=== PATIENT | female | born 1945 | race Two or more races ===

== ENCOUNTER 2021-07-03 18:55 | Inpatient (IN) | payer OTHER, BC ==
[2021-07-03] MEDS ORDERED: SODIUM CHLORIDE 0.9% 500 ML INFUS.BAG IV ONE (19:50)
[2021-07-03] MEDS ORDERED: IBUPROFEN 600 MG TABLET (FP) PO ONE ×2 (19:52→20:25)
[2021-07-03 20:26] LABS: BASO % 1.9 % (0-2.0); EOS % 3.6 % (0-4.5); HEMATOCRIT 36.2 % (32.4-45.2); HEMOGLOBIN 12.1 GM/dL (10.7-15.3); LYMPH % 22.2 % (8-40); MCHC 33.4 g/dl (32.0-36.0); MEAN CELL VOLUME 83.8 fl (80-96); MEAN PLT VOLUME 7.2 fl (7.5-11.1); MONO % 10.8 % (3.8-10.2); NEUT % 61.5 % (42.8-82.8); PLATELET COUNT 336 10^3/uL (134-434); RBC 4.31 M/mm3 (3.60-5.2); RDW 13.8 % (11.6-15.6); WHITE BLOOD COUNT 9.6 K/mm3 (4.0-10.0)
[2021-07-03 20:30] LABS: VENOUS BASE EXCESS 3.3 mmol/L (-2-2); VENOUS O2 SATURATION 93.7 % (70-80); VENOUS PCO2 43.2 mmHg (38-52); VENOUS PH 7.43 (7.310-7.410)
[2021-07-03 20:38] LABS: INR 0.86 (0.83-1.09); PROTHROMBIN TIME (PATIENT) 10.4 SEC (9.7-13.0)
[2021-07-03 20:41] LABS: ACTIVATED PTT 27.3 SECONDS (25.2-36.5)
[2021-07-03 20:58] LABS: BLOOD UREA NITROGEN 33.2 mg/dL (7-18); CALCIUM 8.8 mg/dL (8.5-10.1)
[2021-07-03 21:00] LABS: ALBUMIN 3.2 g/dl (3.4-5.0)
[2021-07-03 21:03] LABS: BILIRUBIN,TOTAL 0.3 mg/dL (0.2-1); TOT PROT 7.6 g/dl (6.4-8.2)
[2021-07-03 21:04] LABS: EPI CELLS 8 /uL (0-25.1); HYALINE CASTS 2 /uL (0-3.1); URINE APPEARANCE CLEAR; URINE BACTERIA 12 /uL (0-1359); URINE BILIRUBIN NEGATIVE (NEGATIVE); URINE COLOR YELLOW; URINE GLUCOSE (UA) NEGATIVE (NEGATIVE); URINE KETONE NEGATIVE (NEGATIVE); URINE LEUK ESTERASE 1+ (NEGATIVE); URINE NITRITE NEGATIVE (NEGATIVE); URINE PROTEIN NEGATIVE (NEGATIVE); URINE RBC 6 /uL (0-23.9); URINE UROBILINOGEN 0.2 mg/dL (0.2-1.0); URINE WBC 35 /uL (0-25.8)
[2021-07-03] MEDS ORDERED: CEFTRIAXONE 1 GM in DEXTROSE 5%-WATER - 100 ML IVPB ONE (22:05)
[2021-07-03] MEDS ORDERED: CEFTRIAXONE 1 GM/50 ML BAG ONE (22:10)
[2021-07-03] MEDS ORDERED: PIPERACILLIN/TAZOB 3.375 GM 3.375 GM in DEXTROSE 5%-WATER - 50 ML IVPB ONE (22:18)
[2021-07-03] MEDS ORDERED: PIPERACILLIN/TAZOB 3.375 GM 3.375 GM/50 ML BAG IVPB ONE (22:20)
[2021-07-03 22:45] LABS: CALCIUM 8.4 mg/dL (8.5-10.1)
[2021-07-03 22:46] LABS: BLOOD UREA NITROGEN 32.2 mg/dL (7-18)
[2021-07-03 22:49] LABS: CREATININE 0.9 mg/dL (0.55-1.3)
[2021-07-03 23:41] LABS: ALBUMIN 3.1 g/dl (3.4-5.0)
[2021-07-04 06:23] LABS: BASO % 0.7 % (0-2.0); EOS % 3.9 % (0-4.5); HEMATOCRIT 36.7 % (32.4-45.2); LYMPH % 25.4 % (8-40); MCH 27.9 pg (25.7-33.7); MCHC 32.8 g/dl (32.0-36.0); MEAN CELL VOLUME 85.1 fl (80-96); MEAN PLT VOLUME 7.2 fl (7.5-11.1); PLATELET COUNT 329 10^3/uL (134-434); RBC 4.31 M/mm3 (3.60-5.2); RDW 13.5 % (11.6-15.6); WHITE BLOOD COUNT 7.3 K/mm3 (4.0-10.0)
[2021-07-04 06:43] LABS: CALCIUM 8.5 mg/dL (8.5-10.1)
[2021-07-04 06:44] LABS: BLOOD UREA NITROGEN 33.4 mg/dL (7-18); MAGNESIUM 2.3 mg/dL (1.8-2.4)
[2021-07-04 06:47] LABS: CREATININE 1.2 mg/dL (0.55-1.3)
[2021-07-04 06:49] LABS: BILIRUBIN,TOTAL 0.5 mg/dL (0.2-1); TOT PROT 7.4 g/dl (6.4-8.2)
[2021-07-04] MEDS: INSULIN SLIDING SCALE (NOVOLOG) 1 VIAL SQ SCH ×4 (07:28→22:03)
[2021-07-04] MEDS ORDERED: PIPERACILLIN/TAZOB 4.5 GM 4.5 GM/100 ML BAG IVPB ONE ×2 (08:49→14:23)
[2021-07-04] MEDS ORDERED: amLODIPine BESYLATE 5 MG TABLET (FP) ONE (08:49)
[2021-07-04] MEDS ORDERED: LISINOPRIL 20 MG TABLET ONE (08:49)
[2021-07-04] MEDS ORDERED: ASPIRIN 81 MG CHEWABLE TABLETS ONE (08:49)
[2021-07-04] MEDS: PIPERACILLIN/TAZOB 4.5 GM 4.5 GM in DEXTROSE 5%-WATER 100 ML IVPB SCH ×2 (08:57→14:34)
[2021-07-04] MEDS: ASPIRIN 81 MG CHEWABLE TABLETS PO SCH (09:28)
[2021-07-04] MEDS: amLODIPine BESYLATE 5 MG TABLET (FP) PO SCH (09:28)
[2021-07-04] MEDS: LISINOPRIL 20 MG TABLET PO SCH (09:28)
[2021-07-04] MEDS: prednisoLONE ACETATE 1% OPHTH SUSP 5 ML BOTTLE OU SCH ×4 (09:28→22:11)
[2021-07-04] MEDS ORDERED: ALBUTEROL SO4 HFA INHALER IH PRN (13:26)
[2021-07-04] MEDS: ATORVASTATIN CA 80 MG TABLET (FP) PO SCH (22:04)
[2021-07-04] MEDS: EZETIMIBE 10 MG TABLET (FP) PO SCH (22:04)
[2021-07-04] MEDS: ACETAMINOPHEN 325 MG TABLET (FP) PO PRN (22:05)
[2021-07-04 22:31] VITALS: BMI 29.5
[2021-07-05] MEDS: ACETAMINOPHEN 325 MG TABLET (FP) PO PRN ×2 (05:38→20:46)
[2021-07-05] MEDS: INSULIN SLIDING SCALE (NOVOLOG) 1 VIAL SQ SCH ×4 (06:07→21:05)
[2021-07-05 08:18] LABS: HEMATOCRIT 35.4 % (32.4-45.2); HEMOGLOBIN 11.7 GM/dL (10.7-15.3); MCH 27.8 pg (25.7-33.7); MCHC 33.1 g/dl (32.0-36.0); MEAN CELL VOLUME 83.9 fl (80-96); MEAN PLT VOLUME 7.6 fl (7.5-11.1); PLATELET COUNT 341 10^3/uL (134-434); RBC 4.21 M/mm3 (3.60-5.2); RDW 13.5 % (11.6-15.6); WHITE BLOOD COUNT 7.1 K/mm3 (4.0-10.0)
[2021-07-05 08:31] LABS: ALBUMIN 3.1 g/dl (3.4-5.0); CALCIUM 8.9 mg/dL (8.5-10.1)
[2021-07-05 08:32] LABS: BLOOD UREA NITROGEN 19.9 mg/dL (7-18)
[2021-07-05 08:38] LABS: TOT PROT 8.3 g/dl (6.4-8.2)
[2021-07-05] MEDS ORDERED: DEXTROSE 5%-WATER - 50 ML IVPB ONE (09:51)
[2021-07-05] MEDS ORDERED: cefTRIAXone SODIUM 1 GM VIAL ONE (09:51)
[2021-07-05] MEDS: prednisoLONE ACETATE 1% OPHTH SUSP 5 ML BOTTLE OU SCH ×4 (09:54→21:05)
[2021-07-05] MEDS: CEFTRIAXONE 1 GM in DEXTROSE 5%-WATER - 50 ML IVPB SCH (09:54)
[2021-07-05] MEDS: ASPIRIN 81 MG CHEWABLE TABLETS PO SCH (09:54)
[2021-07-05] MEDS: amLODIPine BESYLATE 5 MG TABLET (FP) PO SCH (09:54)
[2021-07-05] MEDS: LISINOPRIL 20 MG TABLET PO SCH (09:54)
[2021-07-05] MEDS: EZETIMIBE 10 MG TABLET (FP) PO SCH (21:05)
[2021-07-05] MEDS: ATORVASTATIN CA 80 MG TABLET (FP) PO SCH (21:05)
[2021-07-06] MEDS: INSULIN SLIDING SCALE (NOVOLOG) 1 VIAL SQ SCH ×4 (06:22→22:03)
[2021-07-06] MEDS: PIPERACILLIN/TAZOB 4.5 GM 4.5 GM in DEXTROSE 5%-WATER 100 ML IVPB SCH (07:41)
[2021-07-06 07:49] LABS: BASO % 1.2 % (0-2.0); EOS % 3.4 % (0-4.5); HEMATOCRIT 37.1 % (32.4-45.2); HEMOGLOBIN 12.2 GM/dL (10.7-15.3); LYMPH % 27.8 % (8-40); MCH 28.1 pg (25.7-33.7); MEAN CELL VOLUME 85.1 fl (80-96); MEAN PLT VOLUME 7.3 fl (7.5-11.1); MONO % 9.3 % (3.8-10.2); NEUT % 58.3 % (42.8-82.8); PLATELET COUNT 373 10^3/uL (134-434); RBC 4.36 M/mm3 (3.60-5.2); RDW 13.4 % (11.6-15.6); WHITE BLOOD COUNT 7.2 K/mm3 (4.0-10.0)
[2021-07-06 08:13] LABS: ALBUMIN 3.1 g/dl (3.4-5.0); CALCIUM 9.1 mg/dL (8.5-10.1)
[2021-07-06 08:16] LABS: CREATININE 0.8 mg/dL (0.55-1.3)
[2021-07-06 08:18] LABS: TOT PROT 7.4 g/dl (6.4-8.2)
[2021-07-06 08:27] LABS: BILIRUBIN,TOTAL 0.5 mg/dL (0.2-1)
[2021-07-06] MEDS ORDERED: cefTRIAXone SODIUM 1 GM VIAL ONE (10:24)
[2021-07-06] MEDS ORDERED: DEXTROSE 5%-WATER - 50 ML IVPB ONE (10:24)
[2021-07-06] MEDS: LISINOPRIL 20 MG TABLET PO SCH (10:33)
[2021-07-06] MEDS: prednisoLONE ACETATE 1% OPHTH SUSP 5 ML BOTTLE OU SCH ×5 (10:33→22:04)
[2021-07-06] MEDS: amLODIPine BESYLATE 5 MG TABLET (FP) PO SCH (10:33)
[2021-07-06] MEDS: CEFTRIAXONE 1 GM in DEXTROSE 5%-WATER - 50 ML IVPB SCH (10:34)
[2021-07-06] MEDS: ASPIRIN 81 MG CHEWABLE TABLETS PO SCH (10:34)
[2021-07-06] MEDS ORDERED: ALBUTEROL SO4 HFA INHALER IH PRN (13:54)
[2021-07-06] MEDS: ATORVASTATIN CA 80 MG TABLET (FP) PO SCH (22:02)
[2021-07-06] MEDS: EZETIMIBE 10 MG TABLET (FP) PO SCH (22:02)
[2021-07-07] MEDS: INSULIN SLIDING SCALE (NOVOLOG) 1 VIAL SQ SCH ×4 (06:32→21:55)
[2021-07-07] MEDS: ASPIRIN 81 MG CHEWABLE TABLETS PO SCH (09:37)
[2021-07-07] MEDS: LISINOPRIL 20 MG TABLET PO SCH (09:37)
[2021-07-07] MEDS: LIDOCAINE 5% TOPICAL PATCH TP SCH (09:37)
[2021-07-07] MEDS: prednisoLONE ACETATE 1% OPHTH SUSP 5 ML BOTTLE OU SCH ×4 (09:41→21:56)
[2021-07-07] MEDS ORDERED: CEFTRIAXONE 1 GM in DEXTROSE 5%-WATER - 50 ML IVPB SCH (10:00)
[2021-07-07] MEDS ORDERED: amLODIPine BESYLATE 5 MG TABLET (FP) PO SCH ×2 (10:00→12:20)
[2021-07-07] MEDS ORDERED: amLODIPine BESYLATE 10 MG TABLET (FP) PO SCH (12:24)
[2021-07-07] MEDS: EZETIMIBE 10 MG TABLET (FP) PO SCH (21:52)
[2021-07-07] MEDS: ATORVASTATIN CA 80 MG TABLET (FP) PO SCH (21:53)
[2021-07-07] MEDS: LIDOCAINE PATCH REMOVAL MC SCH (21:55)
[2021-07-07] MEDS: ACETAMINOPHEN 325 MG TABLET (FP) PO PRN (22:01)
[2021-07-08 06:35] VITALS: BP 155/76; PULSE 92; TEMP 97.2
[2021-07-08] MEDS: INSULIN SLIDING SCALE (NOVOLOG) 1 VIAL SQ SCH ×4 (06:35→21:02)
[2021-07-08] MEDS: ASPIRIN 81 MG CHEWABLE TABLETS PO SCH (11:44)
[2021-07-08] MEDS: LISINOPRIL 20 MG TABLET PO SCH (11:44)
[2021-07-08] MEDS: LIDOCAINE 5% TOPICAL PATCH TP SCH (11:44)
[2021-07-08] MEDS: prednisoLONE ACETATE 1% OPHTH SUSP 5 ML BOTTLE OU SCH ×4 (11:45→21:04)
[2021-07-08] MEDS: ACETAMINOPHEN 325 MG TABLET (FP) PO PRN (19:58)
[2021-07-08] MEDS: ATORVASTATIN CA 80 MG TABLET (FP) PO SCH (21:03)
[2021-07-08] MEDS: EZETIMIBE 10 MG TABLET (FP) PO SCH (21:03)
[2021-07-08] MEDS: LIDOCAINE PATCH REMOVAL MC SCH (22:56)
== END 2021-07-08 23:15 | DRG 689 ==
LOC: JER 18:55 → JERBED 21:37 → J4W 07-04 21:37 → J6S 07-06 14:17
PROVIDERS: ADMIT Internal Medicine; ATTEND Family Medicine
DX: N39.0 Urinary tract infection, site not specified (principal); G93.41 Metabolic encephalopathy; I69.354 Hemiplegia and hemiparesis following cerebral infarction affecting left non-dominant side; I50.32 Chronic diastolic (congestive) heart failure; E11.40 Type 2 diabetes mellitus with diabetic neuropathy, unspecified; I25.10 Atherosclerotic heart disease of native coronary artery without angina pectoris; I11.0 Hypertensive heart disease with heart failure; R50.9 Fever, unspecified; R41.82 Altered mental status, unspecified; E78.5 Hyperlipidemia, unspecified; M54.9 Dorsalgia, unspecified; F03.90 Unspecified dementia, unspecified severity, without behavioral disturbance, psychotic disturbance, mood disturbance, and anxiety; J45.909 Unspecified asthma, uncomplicated; E86.0 Dehydration; N28.1 Cyst of kidney, acquired; W19.XXXA Unspecified fall, initial encounter
CPT/HCPCS: 36415; 70450-TC; 71045-TC-FY; 76775-TC; 76856-TC; 80048; 80053; 81003; 82040; 82550; 82570; 82803; 82962; 83605; 83735; 84156; 84300; 84443; 84484; 85025; 85027; 85610; 85730; 87040; 87086; 87899; 93005; 93010; 93880-TC; 97116-GP; 97162-GP; 99285-25; C9803; U0003; U0005

== ENCOUNTER 2022-08-11 11:55 | Inpatient (IN) | payer OTHER, BC ==
[2022-08-11 13:15] LABS: BASO % 1.4 % (0-2.0); EOS % 1.9 % (0-4.5); HEMATOCRIT 34.4 % (32.4-45.2); LYMPH % 19.3 % (8-40); MCH 26.7 pg (25.7-33.7); MEAN CELL VOLUME 83.5 fl (80-96); MEAN PLT VOLUME 7.3 fl (7.5-11.1); MONO % 11.4 % (3.8-10.2); PLATELET COUNT 385 10^3/uL (134-434); RBC 4.12 M/mm3 (3.60-5.2); RDW 13.9 % (11.6-15.6); WHITE BLOOD COUNT 8.8 K/mm3 (4.0-10.0)
[2022-08-11] MEDS ORDERED: ACETAMINOPHEN 1000 MG/100 ML BAG IVPB ONE (13:27)
[2022-08-11] MEDS ORDERED: ACETAMINOPHEN INJECTION 100 ML IVPB ONE (13:34)
[2022-08-11 14:23] LABS: URINE APPEARANCE CLEAR; URINE BILIRUBIN NEGATIVE (NEGATIVE); URINE COLOR YELLOW; URINE GLUCOSE (UA) NEGATIVE (NEGATIVE); URINE KETONE NEGATIVE (NEGATIVE); URINE LEUK ESTERASE NEGATIVE (NEGATIVE); URINE NITRITE NEGATIVE (NEGATIVE); URINE PROTEIN NEGATIVE (NEGATIVE)
[2022-08-11 14:32] LABS: ALBUMIN 3.4 g/dl (3.4-5.0); BILIRUBIN,TOTAL 0.4 mg/dL (0.2-1); BLOOD UREA NITROGEN 12.9 mg/dL (7-18); CALCIUM 9.2 mg/dL (8.5-10.1); TOT PROT 7.5 g/dl (6.4-8.2)
[2022-08-11] MEDS: INSULIN SLIDING SCALE (NOVOLOG) 1 VIAL SQ SCH ×2 (18:41→22:10)
[2022-08-11] MEDS: prednisoLONE ACETATE 1% OPHTH SUSP 5 ML BOTTLE OU SCH ×2 (18:42→23:55)
[2022-08-11] MEDS: KETOROLAC TROMETHAMINE 15 MG/ML VIAL IVPUSH PRN (18:46)
[2022-08-11 20:06] VITALS: BMI 35.6
[2022-08-11] MEDS: ROSUVASTATIN CA 10 MG TABLET PO SCH (22:10)
[2022-08-11] MEDS: FAMOTIDINE 20 MG TABLET PO SCH (22:10)
[2022-08-11] MEDS: ACETAMINOPHEN 325 MG TABLET (FP) PO PRN (22:10)
[2022-08-11] MEDS: GABAPENTIN 100 MG CAPSULE PO SCH (22:10)
[2022-08-11] MEDS: LIDOCAINE PATCH REMOVAL MC SCH (23:55)
[2022-08-12] MEDS: KETOROLAC TROMETHAMINE 15 MG/ML VIAL IVPUSH PRN ×2 (05:55→16:01)
[2022-08-12] MEDS: GABAPENTIN 100 MG CAPSULE PO SCH ×3 (05:55→21:15)
[2022-08-12] MEDS: INSULIN SLIDING SCALE (NOVOLOG) 1 VIAL SQ SCH ×4 (06:22→21:15)
[2022-08-12 09:57] LABS: BLOOD UREA NITROGEN 12.6 mg/dL (7-18)
[2022-08-12 09:58] LABS: CALCIUM 9.4 mg/dL (8.5-10.1)
[2022-08-12 09:59] LABS: PHOSPHOROUS 4.2 mg/dL (2.5-4.9)
[2022-08-12] MEDS: LISINOPRIL 20 MG TABLET PO SCH (10:09)
[2022-08-12] MEDS: amLODIPine BESYLATE 5 MG TABLET (FP) PO SCH (10:09)
[2022-08-12] MEDS: ENOXAPARIN NA (PORCINE) 40 MG/0.4 ML DISP.SYRIN SQ SCH (10:10)
[2022-08-12] MEDS: MECLIZINE HCL 12.5 MG TABLET PO SCH (10:10)
[2022-08-12] MEDS: ASPIRIN 81 MG CHEWABLE TABLETS PO SCH (10:10)
[2022-08-12] MEDS: LIDOCAINE 5% TOPICAL PATCH TP SCH (10:10)
[2022-08-12] MEDS: EZETIMIBE 10 MG TABLET (FP) PO SCH (10:10)
[2022-08-12] MEDS: FAMOTIDINE 20 MG TABLET PO SCH ×2 (10:10→21:15)
[2022-08-12] MEDS: prednisoLONE ACETATE 1% OPHTH SUSP 5 ML BOTTLE OU SCH ×4 (10:14→21:15)
[2022-08-12] MEDS: ROSUVASTATIN CA 10 MG TABLET PO SCH (21:15)
[2022-08-12] MEDS: LIDOCAINE PATCH REMOVAL MC SCH (21:20)
[2022-08-13] MEDS: GABAPENTIN 100 MG CAPSULE PO SCH ×3 (06:17→21:41)
[2022-08-13] MEDS: INSULIN SLIDING SCALE (NOVOLOG) 1 VIAL SQ SCH ×4 (06:23→22:30)
[2022-08-13] MEDS ORDERED: ALBUTEROL SO4 HFA INHALER IH PRN (08:24)
[2022-08-13] MEDS: LIDOCAINE 5% TOPICAL PATCH TP SCH (10:26)
[2022-08-13] MEDS: amLODIPine BESYLATE 5 MG TABLET (FP) PO SCH (10:26)
[2022-08-13] MEDS: FAMOTIDINE 20 MG TABLET PO SCH ×2 (10:26→21:40)
[2022-08-13] MEDS: MECLIZINE HCL 12.5 MG TABLET PO SCH (10:26)
[2022-08-13] MEDS: ASPIRIN 81 MG CHEWABLE TABLETS PO SCH (10:26)
[2022-08-13] MEDS: EZETIMIBE 10 MG TABLET (FP) PO SCH (10:26)
[2022-08-13] MEDS: LISINOPRIL 20 MG TABLET PO SCH (10:26)
[2022-08-13] MEDS: ENOXAPARIN NA (PORCINE) 40 MG/0.4 ML DISP.SYRIN SQ SCH (10:27)
[2022-08-13] MEDS: prednisoLONE ACETATE 1% OPHTH SUSP 5 ML BOTTLE OU SCH ×4 (10:27→21:41)
[2022-08-13] MEDS: LIDOCAINE PATCH REMOVAL MC SCH (21:41)
[2022-08-13] MEDS: ROSUVASTATIN CA 10 MG TABLET PO SCH (21:41)
[2022-08-13] MEDS: KETOROLAC TROMETHAMINE 15 MG/ML VIAL IVPUSH PRN (21:43)
[2022-08-14] MEDS: GABAPENTIN 100 MG CAPSULE PO SCH ×3 (06:01→21:09)
[2022-08-14] MEDS: INSULIN SLIDING SCALE (NOVOLOG) 1 VIAL SQ SCH ×4 (06:02→21:13)
[2022-08-14] MEDS: ACETAMINOPHEN 325 MG TABLET (FP) PO PRN ×2 (06:02→21:00)
[2022-08-14] MEDS: LIDOCAINE 5% TOPICAL PATCH TP SCH (09:43)
[2022-08-14] MEDS: MECLIZINE HCL 12.5 MG TABLET PO SCH (09:43)
[2022-08-14] MEDS: amLODIPine BESYLATE 5 MG TABLET (FP) PO SCH (09:43)
[2022-08-14] MEDS: ENOXAPARIN NA (PORCINE) 40 MG/0.4 ML DISP.SYRIN SQ SCH (09:43)
[2022-08-14] MEDS: EZETIMIBE 10 MG TABLET (FP) PO SCH (09:45)
[2022-08-14] MEDS: LISINOPRIL 20 MG TABLET PO SCH (09:45)
[2022-08-14] MEDS: FAMOTIDINE 20 MG TABLET PO SCH ×2 (09:45→21:09)
[2022-08-14] MEDS: prednisoLONE ACETATE 1% OPHTH SUSP 5 ML BOTTLE OU SCH ×4 (09:46→21:14)
[2022-08-14] MEDS: ASPIRIN 81 MG CHEWABLE TABLETS PO SCH (09:46)
[2022-08-14 10:06] LABS: HEMATOCRIT 34.8 % (32.4-45.2); HEMOGLOBIN 11.2 GM/dL (10.7-15.3); MCHC 32.3 g/dl (32.0-36.0); MEAN CELL VOLUME 83.5 fl (80-96); MEAN PLT VOLUME 6.8 fl (7.5-11.1); PLATELET COUNT 381 10^3/uL (134-434); RBC 4.17 M/mm3 (3.60-5.2); RDW 13.7 % (11.6-15.6); WHITE BLOOD COUNT 7.9 K/mm3 (4.0-10.0)
[2022-08-14 10:34] LABS: CALCIUM 8.9 mg/dL (8.5-10.1)
[2022-08-14 10:35] LABS: BLOOD UREA NITROGEN 17.8 mg/dL (7-18)
[2022-08-14 10:39] LABS: BILIRUBIN,TOTAL 0.5 mg/dL (0.2-1)
[2022-08-14] MEDS ORDERED: INSULIN (NOVOLOG) ASPART 100 UNITS/ML 10ML VIAL ONE (11:03)
[2022-08-14] MEDS: ROSUVASTATIN CA 10 MG TABLET PO SCH (21:09)
[2022-08-14] MEDS: traMADol HCL 50 MG TABLET PO PRN (21:09)
[2022-08-14] MEDS: LIDOCAINE PATCH REMOVAL MC SCH (21:13)
[2022-08-15] MEDS: GABAPENTIN 100 MG CAPSULE PO SCH ×3 (05:56→21:07)
[2022-08-15] MEDS: INSULIN SLIDING SCALE (NOVOLOG) 1 VIAL SQ SCH ×4 (06:49→21:08)
[2022-08-15] MEDS: EZETIMIBE 10 MG TABLET (FP) PO SCH (10:23)
[2022-08-15] MEDS: LIDOCAINE 5% TOPICAL PATCH TP SCH (10:24)
[2022-08-15] MEDS: ASPIRIN 81 MG CHEWABLE TABLETS PO SCH (10:24)
[2022-08-15] MEDS: LISINOPRIL 20 MG TABLET PO SCH (10:24)
[2022-08-15] MEDS: amLODIPine BESYLATE 5 MG TABLET (FP) PO SCH (10:24)
[2022-08-15] MEDS: prednisoLONE ACETATE 1% OPHTH SUSP 5 ML BOTTLE OU SCH ×4 (10:24→21:08)
[2022-08-15] MEDS: ENOXAPARIN NA (PORCINE) 40 MG/0.4 ML DISP.SYRIN SQ SCH (10:24)
[2022-08-15] MEDS: MECLIZINE HCL 12.5 MG TABLET PO SCH (10:24)
[2022-08-15] MEDS: FAMOTIDINE 20 MG TABLET PO SCH ×2 (10:24→21:07)
[2022-08-15] MEDS ORDERED: INSULIN (NOVOLOG) ASPART 100 UNITS/ML 10ML VIAL ONE (10:39)
[2022-08-15] MEDS: traMADol HCL 50 MG TABLET PO PRN (10:46)
[2022-08-15] MEDS: ROSUVASTATIN CA 10 MG TABLET PO SCH (21:07)
[2022-08-15] MEDS: ACETAMINOPHEN 325 MG TABLET (FP) PO PRN (21:07)
[2022-08-15] MEDS: LIDOCAINE PATCH REMOVAL MC SCH (21:44)
[2022-08-16] MEDS: GABAPENTIN 100 MG CAPSULE PO SCH ×3 (06:04→21:31)
[2022-08-16] MEDS: INSULIN SLIDING SCALE (NOVOLOG) 1 VIAL SQ SCH ×4 (06:04→21:32)
[2022-08-16] MEDS: FAMOTIDINE 20 MG TABLET PO SCH ×2 (09:26→21:32)
[2022-08-16] MEDS: traMADol HCL 50 MG TABLET PO PRN ×2 (09:26→21:31)
[2022-08-16] MEDS: EZETIMIBE 10 MG TABLET (FP) PO SCH (09:26)
[2022-08-16] MEDS: ENOXAPARIN NA (PORCINE) 40 MG/0.4 ML DISP.SYRIN SQ SCH (09:26)
[2022-08-16] MEDS: LISINOPRIL 20 MG TABLET PO SCH (09:26)
[2022-08-16] MEDS: MECLIZINE HCL 12.5 MG TABLET PO SCH (09:27)
[2022-08-16] MEDS: LIDOCAINE 5% TOPICAL PATCH TP SCH (09:27)
[2022-08-16] MEDS: ASPIRIN 81 MG CHEWABLE TABLETS PO SCH (09:27)
[2022-08-16] MEDS: prednisoLONE ACETATE 1% OPHTH SUSP 5 ML BOTTLE OU SCH ×4 (09:27→21:34)
[2022-08-16] MEDS: amLODIPine BESYLATE 5 MG TABLET (FP) PO SCH (09:32)
[2022-08-16] MEDS: KETOROLAC TROMETHAMINE 15 MG/ML VIAL IVPUSH PRN (13:19)
[2022-08-16] MEDS: ROSUVASTATIN CA 10 MG TABLET PO SCH (21:32)
[2022-08-16] MEDS: LIDOCAINE PATCH REMOVAL MC SCH (21:32)
[2022-08-17] MEDS: GABAPENTIN 100 MG CAPSULE PO SCH ×3 (06:36→21:23)
[2022-08-17] MEDS: INSULIN SLIDING SCALE (NOVOLOG) 1 VIAL SQ SCH ×4 (06:36→21:24)
[2022-08-17] MEDS: EZETIMIBE 10 MG TABLET (FP) PO SCH (09:40)
[2022-08-17] MEDS: FAMOTIDINE 20 MG TABLET PO SCH ×2 (09:40→21:22)
[2022-08-17] MEDS: ASPIRIN 81 MG CHEWABLE TABLETS PO SCH (09:40)
[2022-08-17] MEDS: amLODIPine BESYLATE 5 MG TABLET (FP) PO SCH (09:40)
[2022-08-17] MEDS: MECLIZINE HCL 12.5 MG TABLET PO SCH (09:41)
[2022-08-17] MEDS: LIDOCAINE 5% TOPICAL PATCH TP SCH (09:41)
[2022-08-17 10:11] LABS: HEMATOCRIT 33.4 % (32.4-45.2); HEMOGLOBIN 10.6 GM/dL (10.7-15.3); MCH 26.5 pg (25.7-33.7); MCHC 31.7 g/dl (32.0-36.0); MEAN CELL VOLUME 83.5 fl (80-96); MEAN PLT VOLUME 6.8 fl (7.5-11.1); PLATELET COUNT 418 10^3/uL (134-434); WHITE BLOOD COUNT 8.7 K/mm3 (4.0-10.0)
[2022-08-17 10:41] LABS: CALCIUM 8.6 mg/dL (8.5-10.1)
[2022-08-17 10:42] LABS: ALBUMIN 2.9 g/dl (3.4-5.0)
[2022-08-17 10:44] LABS: BILIRUBIN,TOTAL 0.4 mg/dL (0.2-1); CREATININE 1.5 mg/dL (0.55-1.3); TOT PROT 7.1 g/dl (6.4-8.2)
[2022-08-17] MEDS: prednisoLONE ACETATE 1% OPHTH SUSP 5 ML BOTTLE OU SCH ×4 (10:47→21:23)
[2022-08-17] MEDS: LISINOPRIL 20 MG TABLET PO SCH (10:48)
[2022-08-17 10:49] LABS: BLOOD UREA NITROGEN 48.2 mg/dL (7-18)
[2022-08-17] MEDS: ENOXAPARIN NA (PORCINE) 40 MG/0.4 ML DISP.SYRIN SQ SCH (10:54)
[2022-08-17] MEDS: KETOROLAC TROMETHAMINE 15 MG/ML VIAL IVPUSH PRN (11:59)
[2022-08-17] MEDS: ACETAMINOPHEN 325 MG TABLET (FP) PO PRN (18:36)
[2022-08-17] MEDS: ROSUVASTATIN CA 10 MG TABLET PO SCH (21:23)
[2022-08-17] MEDS: LIDOCAINE PATCH REMOVAL MC SCH (21:36)
[2022-08-18] MEDS: GABAPENTIN 100 MG CAPSULE PO SCH ×2 (05:28→13:52)
[2022-08-18] MEDS: INSULIN SLIDING SCALE (NOVOLOG) 1 VIAL SQ SCH ×4 (06:07→22:12)
[2022-08-18] MEDS: LIDOCAINE 5% TOPICAL PATCH TP SCH (09:49)
[2022-08-18] MEDS: MECLIZINE HCL 12.5 MG TABLET PO SCH (09:50)
[2022-08-18] MEDS: EZETIMIBE 10 MG TABLET (FP) PO SCH (09:50)
[2022-08-18] MEDS: ASPIRIN 81 MG CHEWABLE TABLETS PO SCH (09:50)
[2022-08-18] MEDS: FAMOTIDINE 20 MG TABLET PO SCH ×2 (09:50→22:11)
[2022-08-18] MEDS: ENOXAPARIN NA (PORCINE) 40 MG/0.4 ML DISP.SYRIN SQ SCH (09:50)
[2022-08-18] MEDS: prednisoLONE ACETATE 1% OPHTH SUSP 5 ML BOTTLE OU SCH ×4 (09:50→22:18)
[2022-08-18] MEDS: amLODIPine BESYLATE 5 MG TABLET (FP) PO SCH (09:50)
[2022-08-18 11:39] LABS: HEMATOCRIT 32.2 % (32.4-45.2); HEMOGLOBIN 10.6 GM/dL (10.7-15.3); MCH 27.6 pg (25.7-33.7); MCHC 33.1 g/dl (32.0-36.0); MEAN CELL VOLUME 83.2 fl (80-96); MEAN PLT VOLUME 6.7 fl (7.5-11.1); PLATELET COUNT 439 10^3/uL (134-434); RBC 3.86 M/mm3 (3.60-5.2); RDW 13.4 % (11.6-15.6); WHITE BLOOD COUNT 7.6 K/mm3 (4.0-10.0)
[2022-08-18 12:24] LABS: ALBUMIN 2.8 g/dl (3.4-5.0); BLOOD UREA NITROGEN 38.4 mg/dL (7-18)
[2022-08-18 12:26] LABS: CREATININE 1.2 mg/dL (0.55-1.3)
[2022-08-18 12:28] LABS: BILIRUBIN,TOTAL 0.7 mg/dL (0.2-1); TOT PROT 7.2 g/dl (6.4-8.2)
[2022-08-18] MEDS: ACETAMINOPHEN 325 MG TABLET (FP) PO PRN (22:11)
[2022-08-18] MEDS: ROSUVASTATIN CA 10 MG TABLET PO SCH (22:11)
[2022-08-18] MEDS: GABAPENTIN 300 MG CAPSULE PO SCH (22:11)
[2022-08-18] MEDS: LIDOCAINE PATCH REMOVAL MC SCH (22:12)
[2022-08-19] MEDS: GABAPENTIN 300 MG CAPSULE PO SCH ×3 (06:28→22:45)
[2022-08-19] MEDS: INSULIN SLIDING SCALE (NOVOLOG) 1 VIAL SQ SCH ×4 (06:31→22:45)
[2022-08-19] MEDS: ACETAMINOPHEN 325 MG TABLET (FP) PO PRN ×2 (10:20→22:47)
[2022-08-19] MEDS: amLODIPine BESYLATE 5 MG TABLET (FP) PO SCH (10:20)
[2022-08-19] MEDS: EZETIMIBE 10 MG TABLET (FP) PO SCH (10:21)
[2022-08-19] MEDS: LIDOCAINE 5% TOPICAL PATCH TP SCH (10:21)
[2022-08-19] MEDS: ASPIRIN 81 MG CHEWABLE TABLETS PO SCH (10:21)
[2022-08-19] MEDS: MECLIZINE HCL 12.5 MG TABLET PO SCH (10:21)
[2022-08-19] MEDS: prednisoLONE ACETATE 1% OPHTH SUSP 5 ML BOTTLE OU SCH ×4 (10:21→22:46)
[2022-08-19] MEDS: FAMOTIDINE 20 MG TABLET PO SCH ×2 (10:22→22:45)
[2022-08-19 10:46] LABS: HEMATOCRIT 33.3 % (32.4-45.2); HEMOGLOBIN 10.8 GM/dL (10.7-15.3); MCHC 32.6 g/dl (32.0-36.0); MEAN CELL VOLUME 82.6 fl (80-96); MEAN PLT VOLUME 6.4 fl (7.5-11.1); PLATELET COUNT 462 10^3/uL (134-434); RBC 4.02 M/mm3 (3.60-5.2); RDW 13.5 % (11.6-15.6); WHITE BLOOD COUNT 8.1 K/mm3 (4.0-10.0)
[2022-08-19 11:12] LABS: ALBUMIN 2.7 g/dl (3.4-5.0); BLOOD UREA NITROGEN 29.2 mg/dL (7-18); CALCIUM 8.8 mg/dL (8.5-10.1)
[2022-08-19 11:18] LABS: BILIRUBIN,TOTAL 0.5 mg/dL (0.2-1); TOT PROT 7.2 g/dl (6.4-8.2)
[2022-08-19] MEDS: LIDOCAINE PATCH REMOVAL MC SCH (22:45)
[2022-08-19] MEDS: ROSUVASTATIN CA 10 MG TABLET PO SCH (22:45)
[2022-08-20] MEDS: GABAPENTIN 300 MG CAPSULE PO SCH ×3 (05:58→21:32)
[2022-08-20] MEDS: INSULIN SLIDING SCALE (NOVOLOG) 1 VIAL SQ SCH ×4 (06:52→21:31)
[2022-08-20] MEDS: LISINOPRIL 20 MG TABLET PO SCH (09:45)
[2022-08-20] MEDS: ASPIRIN 81 MG CHEWABLE TABLETS PO SCH (09:45)
[2022-08-20] MEDS: EZETIMIBE 10 MG TABLET (FP) PO SCH (09:45)
[2022-08-20] MEDS: FAMOTIDINE 20 MG TABLET PO SCH ×2 (09:45→21:32)
[2022-08-20] MEDS: amLODIPine BESYLATE 5 MG TABLET (FP) PO SCH (09:45)
[2022-08-20] MEDS: MECLIZINE HCL 12.5 MG TABLET PO SCH (09:45)
[2022-08-20] MEDS: LIDOCAINE 5% TOPICAL PATCH TP SCH (09:46)
[2022-08-20] MEDS: prednisoLONE ACETATE 1% OPHTH SUSP 5 ML BOTTLE OU SCH ×4 (10:10→21:33)
[2022-08-20] MEDS: ACETAMINOPHEN 325 MG TABLET (FP) PO PRN (18:36)
[2022-08-20] MEDS: LIDOCAINE PATCH REMOVAL MC SCH (21:32)
[2022-08-20] MEDS: ROSUVASTATIN CA 10 MG TABLET PO SCH (21:32)
[2022-08-21] MEDS: GABAPENTIN 300 MG CAPSULE PO SCH ×2 (06:02→13:36)
[2022-08-21] MEDS: INSULIN SLIDING SCALE (NOVOLOG) 1 VIAL SQ SCH ×4 (06:05→21:33)
[2022-08-21] MEDS: LIDOCAINE 5% TOPICAL PATCH TP SCH (09:41)
[2022-08-21] MEDS: amLODIPine BESYLATE 5 MG TABLET (FP) PO SCH (09:41)
[2022-08-21] MEDS: EZETIMIBE 10 MG TABLET (FP) PO SCH (09:42)
[2022-08-21] MEDS: LISINOPRIL 20 MG TABLET PO SCH (09:42)
[2022-08-21] MEDS: MECLIZINE HCL 12.5 MG TABLET PO SCH (09:42)
[2022-08-21] MEDS: ASPIRIN 81 MG CHEWABLE TABLETS PO SCH (09:42)
[2022-08-21] MEDS: FAMOTIDINE 20 MG TABLET PO SCH ×2 (09:42→21:31)
[2022-08-21] MEDS: prednisoLONE ACETATE 1% OPHTH SUSP 5 ML BOTTLE OU SCH ×4 (09:42→21:33)
[2022-08-21] MEDS ORDERED: DOCUSATE SODIUM 100 MG CAPSULE (FP) PO ONE (15:27)
[2022-08-21] MEDS: LORATADINE 10 MG TABLET PO SCH (16:38)
[2022-08-21 17:16] LABS: BASO % 1.1 % (0-2.0); HEMATOCRIT 34.5 % (32.4-45.2); LYMPH % 15.4 % (8-40); MCH 26.3 pg (25.7-33.7); MCHC 31.8 g/dl (32.0-36.0); MEAN CELL VOLUME 82.6 fl (80-96); MEAN PLT VOLUME 6.6 fl (7.5-11.1); MONO % 9.1 % (3.8-10.2); NEUT % 72.4 % (42.8-82.8); PLATELET COUNT 524 10^3/uL (134-434); RBC 4.18 M/mm3 (3.60-5.2); RDW 13.6 % (11.6-15.6); WHITE BLOOD COUNT 10.2 K/mm3 (4.0-10.0)
[2022-08-21 17:38] LABS: CALCIUM 9.1 mg/dL (8.5-10.1)
[2022-08-21 17:39] LABS: ALBUMIN 2.9 g/dl (3.4-5.0)
[2022-08-21 17:44] LABS: BILIRUBIN,TOTAL 0.4 mg/dL (0.2-1); TOT PROT 7.8 g/dl (6.4-8.2)
[2022-08-21] MEDS: POLYETHYLENE GLYCOL (HEALTHYLAX) 3350 17 GM PACKET PO SCH (21:31)
[2022-08-21] MEDS: ROSUVASTATIN CA 10 MG TABLET PO SCH (21:31)
[2022-08-21] MEDS: GABAPENTIN 400 MG CAPSULE PO SCH (21:31)
[2022-08-21] MEDS: LIDOCAINE PATCH REMOVAL MC SCH (21:34)
[2022-08-22] MEDS: GABAPENTIN 400 MG CAPSULE PO SCH ×2 (06:13→14:35)
[2022-08-22] MEDS: INSULIN SLIDING SCALE (NOVOLOG) 1 VIAL SQ SCH ×3 (06:15→16:34)
[2022-08-22] MEDS: POLYETHYLENE GLYCOL (HEALTHYLAX) 3350 17 GM PACKET PO SCH (09:35)
[2022-08-22] MEDS: FAMOTIDINE 20 MG TABLET PO SCH (09:35)
[2022-08-22] MEDS: LORATADINE 10 MG TABLET PO SCH (09:36)
[2022-08-22] MEDS: MECLIZINE HCL 12.5 MG TABLET PO SCH (09:36)
[2022-08-22] MEDS: ASPIRIN 81 MG CHEWABLE TABLETS PO SCH (09:36)
[2022-08-22] MEDS: prednisoLONE ACETATE 1% OPHTH SUSP 5 ML BOTTLE OU SCH ×3 (09:36→17:14)
[2022-08-22] MEDS: LIDOCAINE 5% TOPICAL PATCH TP SCH (09:36)
[2022-08-22] MEDS: EZETIMIBE 10 MG TABLET (FP) PO SCH (09:36)
[2022-08-22] MEDS: amLODIPine BESYLATE 5 MG TABLET (FP) PO SCH (09:36)
[2022-08-22] MEDS ORDERED: INSULIN (NOVOLOG) ASPART 100 UNITS/ML 10ML VIAL ONE (10:59)
[2022-08-22 12:02] LABS: HEMATOCRIT 33.7 % (32.4-45.2); HEMOGLOBIN 10.7 GM/dL (10.7-15.3); MCH 26.2 pg (25.7-33.7); MCHC 31.7 g/dl (32.0-36.0); MEAN CELL VOLUME 82.6 fl (80-96); MEAN PLT VOLUME 6.9 fl (7.5-11.1); PLATELET COUNT 532 10^3/uL (134-434); RBC 4.08 M/mm3 (3.60-5.2); RDW 13.4 % (11.6-15.6); WHITE BLOOD COUNT 10.1 K/mm3 (4.0-10.0)
[2022-08-22 12:21] LABS: CALCIUM 9.2 mg/dL (8.5-10.1)
[2022-08-22 12:22] LABS: ALBUMIN 2.7 g/dl (3.4-5.0); BLOOD UREA NITROGEN 29.5 mg/dL (7-18)
[2022-08-22 12:25] LABS: CREATININE 1.1 mg/dL (0.55-1.3)
[2022-08-22 12:26] LABS: BILIRUBIN,TOTAL 0.5 mg/dL (0.2-1); TOT PROT 7.3 g/dl (6.4-8.2)
[2022-08-22 13:42] VITALS: BP 117/71; PULSE 107; RESP 18; TEMP 99.3
== END 2022-08-22 18:12 | DRG 552 ==
LOC: JER 11:55 → JERBED 12:34 → J6S 18:09 → OBSVTOIN 08-16 13:55 → JERBED 08-19 21:04 → J6S 08-19 21:06
PROVIDERS: ADMIT Internal Medicine; ATTEND Internal Medicine
DX: M51.26 Other intervertebral disc displacement, lumbar region (principal); I50.32 Chronic diastolic (congestive) heart failure; M51.36 Other intervertebral disc degeneration, lumbar region; R26.89 Other abnormalities of gait and mobility; E11.40 Type 2 diabetes mellitus with diabetic neuropathy, unspecified; M79.671 Pain in right foot; E78.5 Hyperlipidemia, unspecified; J45.909 Unspecified asthma, uncomplicated; I11.0 Hypertensive heart disease with heart failure; D72.829 Elevated white blood cell count, unspecified; R32 Unspecified urinary incontinence; R42 Dizziness and giddiness
CPT/HCPCS: 36415; 70450-TC; 71045-TC-FY; 72148-TC; 73521-TC-FY; 73700-TC-RT; 80048; 80053; 81003; 82746; 82962; 83735; 84100; 84252; 85025; 85027; 87086; 93005; 93010; 97116-GP; 97162-GP; 99285-25; C9803-CS; G0378; U0003; U0005

== ENCOUNTER 2022-09-28 19:24 | Observation (INO) | payer OTHER, BC ==
[2022-09-28] MEDS ORDERED: ENOXAPARIN NA (PORCINE) 100 MG/1 ML DISP.SYRIN SQ ONE ×2 (21:03→22:21)
[2022-09-28 22:11] LABS: BASO % 1.9 % (0-2.0); EOS % 2.9 % (0-4.5); HEMATOCRIT 26.7 % (32.4-45.2); HEMOGLOBIN 8.6 GM/dL (10.7-15.3); LYMPH % 29.7 % (8-40); MCH 26.6 pg (25.7-33.7); MCHC 32.2 g/dl (32.0-36.0); MEAN CELL VOLUME 82.5 fl (80-96); MEAN PLT VOLUME 6.7 fl (7.5-11.1); MONO % 9.8 % (3.8-10.2); NEUT % 55.7 % (42.8-82.8); PLATELET COUNT 367 10^3/uL (134-434); RBC 3.23 M/mm3 (3.60-5.2); RDW 15.3 % (11.6-15.6); WHITE BLOOD COUNT 8.2 K/mm3 (4.0-10.0)
[2022-09-28 22:27] LABS: BLOOD UREA NITROGEN 17.7 mg/dL (7-18); CALCIUM 8.3 mg/dL (8.5-10.1)
[2022-09-28 22:30] LABS: CREATININE 1.2 mg/dL (0.55-1.3)
[2022-09-28 22:31] LABS: BILIRUBIN,TOTAL 0.2 mg/dL (0.2-1); TOT PROT 6.8 g/dl (6.4-8.2)
[2022-09-28 22:35] LABS: N-TERMINAL BNP 271.5 pg/ml (5-450)
[2022-09-29 03:07] LABS: RETICULOCYTES 1.45 % (0.5-1.5)
[2022-09-29 04:27] VITALS: BMI 31.7
[2022-09-29] MEDS: INSULIN SLIDING SCALE (NOVOLOG) 1 VIAL SQ SCH ×4 (07:12→23:03)
[2022-09-29] MEDS: ENOXAPARIN NA (PORCINE) 80 MG/0.8 ML DISP.SYRIN SQ SCH ×2 (09:52→22:51)
[2022-09-29] MEDS: amLODIPine BESYLATE 5 MG TABLET (FP) PO SCH (09:53)
[2022-09-29] MEDS: ASPIRIN 81 MG CHEWABLE TABLETS PO SCH (09:53)
[2022-09-29] MEDS: CITALOPRAM HYDROBROMIDE 20 MG TABLET PO SCH (09:53)
[2022-09-29] MEDS: FAMOTIDINE 20 MG TABLET PO SCH ×2 (09:53→22:50)
[2022-09-29] MEDS: EZETIMIBE 10 MG TABLET (FP) PO SCH (09:54)
[2022-09-29] MEDS: prednisoLONE ACETATE 1% OPHTH SUSP 5 ML BOTTLE OU SCH ×2 (11:19→22:51)
[2022-09-29 12:46] LABS: EPI CELLS 7 /uL (0-25.1); HYALINE CASTS 0 /uL (0-3.1); URINE APPEARANCE CLEAR; URINE BACTERIA >9,000 /uL (0-1359); URINE BILIRUBIN NEGATIVE (NEGATIVE); URINE COLOR YELLOW; URINE GLUCOSE (UA) NEGATIVE (NEGATIVE); URINE KETONE NEGATIVE (NEGATIVE); URINE LEUK ESTERASE 1+ (NEGATIVE); URINE NITRITE NEGATIVE (NEGATIVE); URINE PROTEIN NEGATIVE (NEGATIVE); URINE RBC 8 /uL (0-23.9); URINE UROBILINOGEN 0.2 mg/dL (0.2-1.0); URINE WBC 52 /uL (0-25.8)
[2022-09-29] MEDS: GABAPENTIN 400 MG CAPSULE PO SCH ×2 (14:18→22:50)
[2022-09-29] MEDS: MECLIZINE HCL 12.5 MG TABLET PO SCH ×2 (14:19→22:50)
[2022-09-29] MEDS ORDERED: DOCUSATE SODIUM 100 MG CAPSULE (FP) PO SCH (22:00)
[2022-09-29] MEDS ORDERED: ATORVASTATIN CA 20 MG TABLET (FP) PO SCH (22:00)
[2022-09-30] MEDS: MECLIZINE HCL 12.5 MG TABLET PO SCH ×2 (06:09→13:14)
[2022-09-30] MEDS: GABAPENTIN 400 MG CAPSULE PO SCH ×2 (06:09→13:14)
[2022-09-30] MEDS: INSULIN SLIDING SCALE (NOVOLOG) 1 VIAL SQ SCH ×3 (06:33→15:56)
[2022-09-30] MEDS: prednisoLONE ACETATE 1% OPHTH SUSP 5 ML BOTTLE OU SCH ×2 (09:18→09:23)
[2022-09-30] MEDS: EZETIMIBE 10 MG TABLET (FP) PO SCH (09:18)
[2022-09-30] MEDS: ASPIRIN 81 MG CHEWABLE TABLETS PO SCH (09:18)
[2022-09-30] MEDS: ENOXAPARIN NA (PORCINE) 80 MG/0.8 ML DISP.SYRIN SQ SCH (09:18)
[2022-09-30] MEDS: CITALOPRAM HYDROBROMIDE 20 MG TABLET PO SCH (09:18)
[2022-09-30] MEDS: amLODIPine BESYLATE 5 MG TABLET (FP) PO SCH (09:18)
[2022-09-30] MEDS: FAMOTIDINE 20 MG TABLET PO SCH (09:18)
[2022-09-30 09:56] LABS: BASO % 1.3 % (0-2.0); EOS % 2.8 % (0-4.5); HEMATOCRIT 31.1 % (32.4-45.2); HEMOGLOBIN 9.8 GM/dL (10.7-15.3); LYMPH % 32.4 % (8-40); MCH 25.9 pg (25.7-33.7); MCHC 31.6 g/dl (32.0-36.0); MEAN PLT VOLUME 7.5 fl (7.5-11.1); MONO % 8.1 % (3.8-10.2); NEUT % 55.4 % (42.8-82.8); PLATELET COUNT 409 10^3/uL (134-434); RBC 3.79 M/mm3 (3.60-5.2); RDW 15.6 % (11.6-15.6); WHITE BLOOD COUNT 6.8 K/mm3 (4.0-10.0)
[2022-09-30 10:06] LABS: ALBUMIN 3.2 g/dl (3.4-5.0); CALCIUM 9.5 mg/dL (8.5-10.1)
[2022-09-30 10:07] LABS: MAGNESIUM 1.7 mg/dL (1.8-2.4)
[2022-09-30 10:10] LABS: CREATININE 0.9 mg/dL (0.55-1.3)
[2022-09-30 10:11] LABS: BILIRUBIN,TOTAL 1.2 mg/dL (0.2-1); TOT PROT 7.2 g/dl (6.4-8.2)
[2022-09-30 10:21] VITALS: BP 146/81; PULSE 103; RESP 18; TEMP 99.1
== END 2022-09-30 17:30 | disposition home or self-care (01) ==
LOC: JER 19:24 → INTOOBSV 23:14 → JERBED 23:14 → J7W 09-29 03:15
PROVIDERS: ADMIT Internal Medicine; ATTEND Internal Medicine
PROC: 3E023GC Introduction of Other Therapeutic Substance into Muscle, Percutaneous Approach (ICD-10-PCS; principal; 2022-09-28)
PROC: 3E013VG Introduction of Insulin into Subcutaneous Tissue, Percutaneous Approach (ICD-10-PCS; 2022-09-28)
DX: I82.4Z1 Acute embolism and thrombosis of unspecified deep veins of right distal lower extremity (principal); I11.0 Hypertensive heart disease with heart failure; E11.40 Type 2 diabetes mellitus with diabetic neuropathy, unspecified; Z79.01 Long term (current) use of anticoagulants; E66.8 Other obesity; Z68.34 Body mass index [BMI] 34.0-34.9, adult; R29.810 Facial weakness; H54.40 Blindness, one eye, unspecified eye; J45.909 Unspecified asthma, uncomplicated; F03.90 Unspecified dementia, unspecified severity, without behavioral disturbance, psychotic disturbance, mood disturbance, and anxiety; I69.398 Other sequelae of cerebral infarction; G89.29 Other chronic pain; M54.50 Low back pain, unspecified; E78.5 Hyperlipidemia, unspecified; M79.604 Pain in right leg; Z88.8 Allergy status to other drugs, medicaments and biological substances; R60.9 Edema, unspecified; D64.9 Anemia, unspecified; M19.90 Unspecified osteoarthritis, unspecified site
CPT/HCPCS: 36415; 80053; 81003; 82607; 82728; 82746; 82962; 83540; 83550; 83615; 83735; 83880; 84100; 85025; 85045; 93005; 93010; 96372; 97116-GP; 99285-25; C9803-CS; G0378; U0003; U0005

== ENCOUNTER 2022-09-30 18:38 | Observation (INO) | payer OTHER, BC ==
[2022-09-30 19:02] VITALS: BMI 32.1
[2022-09-30] MEDS ORDERED: CEFTRIAXONE 1 GM in DEXTROSE 5%-WATER - 50 ML IVPB ONE (19:44)
[2022-09-30] MEDS ORDERED: CEFTRIAXONE 1 GM/50 ML BAG ONE (21:58)
[2022-09-30 22:53] LABS: BASO % 1.2 % (0-2.0); EOS % 0.8 % (0-4.5); HEMATOCRIT 31.2 % (32.4-45.2); HEMOGLOBIN 9.8 GM/dL (10.7-15.3); MCH 25.9 pg (25.7-33.7); MCHC 31.6 g/dl (32.0-36.0); MEAN CELL VOLUME 82.1 fl (80-96); MEAN PLT VOLUME 7.4 fl (7.5-11.1); MONO % 7.6 % (3.8-10.2); NEUT % 73.4 % (42.8-82.8); PLATELET COUNT 423 10^3/uL (134-434); RDW 15.2 % (11.6-15.6); WHITE BLOOD COUNT 10.5 K/mm3 (4.0-10.0)
[2022-09-30 23:13] LABS: ALBUMIN 3.5 g/dl (3.4-5.0); CALCIUM 9.3 mg/dL (8.5-10.1)
[2022-09-30 23:14] LABS: BLOOD UREA NITROGEN 14.8 mg/dL (7-18)
[2022-09-30 23:18] LABS: BILIRUBIN,TOTAL 0.3 mg/dL (0.2-1); TOT PROT 7.6 g/dl (6.4-8.2)
[2022-10-01] MEDS ORDERED: ENOXAPARIN NA (PORCINE) 40 MG/0.4 ML DISP.SYRIN SQ SCH (10:00)
[2022-10-01] MEDS ORDERED: MECLIZINE HCL 12.5 MG TABLET PO PRN (10:18)
[2022-10-01] MEDS ORDERED: ASPIRIN 325 MG TABLET PO ONE (11:00)
[2022-10-01] MEDS: amLODIPine BESYLATE 10 MG TABLET (FP) PO SCH (12:03)
[2022-10-01] MEDS: LISINOPRIL 20 MG TABLET PO SCH (12:03)
[2022-10-01] MEDS: CITALOPRAM HYDROBROMIDE 20 MG TABLET PO SCH (12:03)
[2022-10-01 12:13] LABS: BASO % 1.2 % (0-2.0); EOS % 2.5 % (0-4.5); HEMOGLOBIN 9.6 GM/dL (10.7-15.3); LYMPH % 25.5 % (8-40); MCH 26.1 pg (25.7-33.7); MEAN CELL VOLUME 81.6 fl (80-96); MEAN PLT VOLUME 7.5 fl (7.5-11.1); MONO % 9.8 % (3.8-10.2); PLATELET COUNT 403 10^3/uL (134-434); RBC 3.68 M/mm3 (3.60-5.2); RDW 15.3 % (11.6-15.6); WHITE BLOOD COUNT 8.3 K/mm3 (4.0-10.0)
[2022-10-01 12:33] LABS: CHLORIDE 108 mmol/L (98-107); SODIUM 145 mmol/L (136-145)
[2022-10-01 12:34] LABS: CALCIUM 9.4 mg/dL (8.5-10.1)
[2022-10-01 12:35] LABS: ANION GAP 8 MMOL/L (8-16); CO2 29 mmol/L (21-32); GLUCOSE,RANDOM 102 mg/dL (74-106); MAGNESIUM 1.8 mg/dL (1.8-2.4)
[2022-10-01 12:38] LABS: CHOLESTEROL 129 mg/dL (50-200); CREATININE 0.8 mg/dL (0.55-1.3); PHOSPHOROUS 3.6 mg/dL (2.5-4.9); TRIGLYCERIDES 73 mg/dL (0-150)
[2022-10-01 12:39] LABS: LDL CHOLESTEROL (ONLY SJRH) 59 mg/dL (5-100)
[2022-10-01 12:41] LABS: HDL CHOLESTEROL 59 mg/dL (40-60)
[2022-10-01] MEDS: ATORVASTATIN CA 20 MG TABLET (FP) PO SCH (21:24)
[2022-10-01] MEDS: DOCUSATE SODIUM 100 MG CAPSULE (FP) PO SCH (21:24)
[2022-10-01] MEDS: prednisoLONE ACETATE 1% OPHTH SUSP 5 ML BOTTLE OU SCH (21:25)
[2022-10-01] MEDS: LIDOCAINE PATCH REMOVAL MC SCH (21:30)
[2022-10-02] MEDS: LIDOCAINE 5% TOPICAL PATCH TP SCH (11:07)
[2022-10-02] MEDS: EZETIMIBE 10 MG TABLET (FP) PO SCH (11:07)
[2022-10-02] MEDS: LISINOPRIL 20 MG TABLET PO SCH ×2 (11:07→13:13)
[2022-10-02] MEDS: CITALOPRAM HYDROBROMIDE 20 MG TABLET PO SCH (11:07)
[2022-10-02] MEDS: amLODIPine BESYLATE 10 MG TABLET (FP) PO SCH (11:07)
[2022-10-02] MEDS: ASPIRIN 81 MG CHEWABLE TABLETS PO SCH (11:07)
[2022-10-02] MEDS: prednisoLONE ACETATE 1% OPHTH SUSP 5 ML BOTTLE OU SCH ×2 (11:08→21:28)
[2022-10-02 14:02] LABS: EPI CELLS 27 /uL (0-25.1); HYALINE CASTS 1 /uL (0-3.1); PH,URINE 7.5 (5.0-8.0); URINE APPEARANCE CLEAR; URINE BACTERIA 72 /uL (0-1359); URINE BILIRUBIN NEGATIVE (NEGATIVE); URINE COLOR YELLOW; URINE GLUCOSE (UA) TRACE (NEGATIVE); URINE KETONE NEGATIVE (NEGATIVE); URINE LEUK ESTERASE 1+ (NEGATIVE); URINE NITRITE NEGATIVE (NEGATIVE); URINE PROTEIN TRACE (NEGATIVE); URINE RBC 14 /uL (0-23.9); URINE WBC 78 /uL (0-25.8)
[2022-10-02] MEDS: APIXABAN 5 MG TABLET PO SCH ×2 (15:21→21:28)
[2022-10-02] MEDS: DOCUSATE SODIUM 100 MG CAPSULE (FP) PO SCH (21:27)
[2022-10-02] MEDS: ATORVASTATIN CA 20 MG TABLET (FP) PO SCH (21:28)
[2022-10-02] MEDS: LIDOCAINE PATCH REMOVAL MC SCH (21:28)
[2022-10-03] MEDS: INSULIN SLIDING SCALE (NOVOLOG) 1 VIAL SQ SCH ×3 (06:05→17:40)
[2022-10-03 07:51] LABS: EOS % 2.4 % (0-4.5); HEMOGLOBIN 9.9 GM/dL (10.7-15.3); LYMPH % 25.6 % (8-40); MCH 26.3 pg (25.7-33.7); MCHC 32.1 g/dl (32.0-36.0); MEAN PLT VOLUME 7.3 fl (7.5-11.1); MONO % 8.6 % (3.8-10.2); NEUT % 62.4 % (42.8-82.8); PLATELET COUNT 372 10^3/uL (134-434); RBC 3.78 M/mm3 (3.60-5.2); RDW 15.7 % (11.6-15.6); WHITE BLOOD COUNT 7.4 K/mm3 (4.0-10.0)
[2022-10-03 08:39] LABS: ALBUMIN 3.4 g/dl (3.4-5.0)
[2022-10-03 08:41] LABS: CALCIUM 9.2 mg/dL (8.5-10.1); MAGNESIUM 1.9 mg/dL (1.8-2.4)
[2022-10-03 08:42] LABS: CREATININE 0.7 mg/dL (0.55-1.3); PHOSPHOROUS 3.6 mg/dL (2.5-4.9)
[2022-10-03 08:44] LABS: BILIRUBIN,TOTAL 0.6 mg/dL (0.2-1); TOT PROT 7.3 g/dl (6.4-8.2)
[2022-10-03] MEDS ORDERED: CEPHALEXIN MONOHYDRATE 500 MG CAPSULE (UD) PO SCH (10:00)
[2022-10-03] MEDS: ASPIRIN 81 MG CHEWABLE TABLETS PO SCH (10:12)
[2022-10-03] MEDS: APIXABAN 5 MG TABLET PO SCH (10:12)
[2022-10-03] MEDS: EZETIMIBE 10 MG TABLET (FP) PO SCH (10:12)
[2022-10-03] MEDS: amLODIPine BESYLATE 10 MG TABLET (FP) PO SCH (10:12)
[2022-10-03] MEDS: CITALOPRAM HYDROBROMIDE 20 MG TABLET PO SCH (10:13)
[2022-10-03] MEDS: LIDOCAINE 5% TOPICAL PATCH TP SCH (10:13)
[2022-10-03] MEDS: prednisoLONE ACETATE 1% OPHTH SUSP 5 ML BOTTLE OU SCH (10:13)
[2022-10-03 11:30] VITALS: RESP 18
[2022-10-03 15:21] VITALS: BP 143/72; PULSE 113; TEMP 98.2
[2022-10-08] MEDS ORDERED: APIXABAN 5 MG TABLET PO SCH (10:00)
== END 2022-10-03 19:45 | disposition home or self-care (01) ==
LOC: JER 18:38 → JERBED 10-01 00:20 → INTOOBSV 10-01 00:20 → J4W 10-01 10:29
PROVIDERS: ADMIT Internal Medicine; ATTEND Internal Medicine
DX: R55 Syncope and collapse (principal); Z29.8 Encounter for other specified prophylactic measures; H54.40 Blindness, one eye, unspecified eye; I10 Essential (primary) hypertension; E78.5 Hyperlipidemia, unspecified; Z79.01 Long term (current) use of anticoagulants
CPT/HCPCS: 0241U-QW; 36415; 70450-TC; 70551-TC; 71045-TC-FY; 80048; 80053; 80061; 81003; 82962; 83036; 83735; 84100; 84443; 84484; 85025; 87086; 87186; 93005; 93010; 93306-TC; 96365; 97116-GP; 97161-GP; 99285-25; G0378

== ENCOUNTER 2022-11-26 14:13 | Inpatient (IN) | payer OTHER, BC ==
[2022-11-26 16:27] LABS: BASO % 1.2 % (0-2.0); EOS % 3.4 % (0-4.5); HEMATOCRIT 30.7 % (32.4-45.2); HEMOGLOBIN 9.8 GM/dL (10.7-15.3); LYMPH % 24.5 % (8-40); MCHC 31.9 g/dl (32.0-36.0); MEAN CELL VOLUME 81.5 fl (80-96); MEAN PLT VOLUME 6.5 fl (7.5-11.1); MONO % 8.2 % (3.8-10.2); NEUT % 62.7 % (42.8-82.8); RBC 3.77 M/mm3 (3.60-5.2); RDW 16.3 % (11.6-15.6); WHITE BLOOD COUNT 10.3 K/mm3 (4.0-10.0)
[2022-11-26 16:29] LABS: PLATELET COUNT 462 10^3/uL (134-434)
[2022-11-26 16:36] LABS: INR 1.1 (0.83-1.09); PROTHROMBIN TIME (PATIENT) 12.7 SEC (9.7-13.0)
[2022-11-26 16:39] LABS: ACTIVATED PTT 29.3 SECONDS (25.2-36.5)
[2022-11-26 16:56] LABS: BLOOD UREA NITROGEN 15.1 mg/dL (7-18); CALCIUM 9.2 mg/dL (8.5-10.1)
[2022-11-26 16:57] LABS: ALBUMIN 3.6 g/dl (3.4-5.0)
[2022-11-26 17:01] LABS: BILIRUBIN,TOTAL 0.3 mg/dL (0.2-1); TOT PROT 7.6 g/dl (6.4-8.2)
[2022-11-26] MEDS ORDERED: ENOXAPARIN NA (PORCINE) 40 MG/0.4 ML DISP.SYRIN SQ ONE (17:20)
[2022-11-26] MEDS ORDERED: ENOXAPARIN NA (PORCINE) 80 MG/0.8 ML DISP.SYRIN SQ ONE (18:07)
[2022-11-26 20:57] VITALS: BMI 33.0
[2022-11-27] MEDS: GABAPENTIN 100 MG CAPSULE PO SCH ×3 (06:05→21:24)
[2022-11-27] MEDS: metFORMIN HCL 500 MG TABLET (FP) PO SCH ×2 (06:06→16:24)
[2022-11-27] MEDS: INSULIN SLIDING SCALE (NOVOLOG) 1 VIAL SQ SCH ×3 (06:09→16:26)
[2022-11-27] MEDS: CITALOPRAM HYDROBROMIDE 20 MG TABLET PO SCH (09:50)
[2022-11-27] MEDS: EZETIMIBE 10 MG TABLET (FP) PO SCH (09:50)
[2022-11-27] MEDS: ENOXAPARIN NA (PORCINE) 80 MG/0.8 ML DISP.SYRIN SQ SCH ×2 (09:50→21:24)
[2022-11-27] MEDS: LISINOPRIL 20 MG TABLET PO SCH (09:50)
[2022-11-27] MEDS: prednisoLONE ACETATE 1% OPHTH SUSP 5 ML BOTTLE OU SCH ×2 (09:50→21:25)
[2022-11-27] MEDS ORDERED: amLODIPine BESYLATE 5 MG TABLET (FP) PO SCH (10:00)
[2022-11-27 10:30] LABS: BASO % 0.7 % (0-2.0); EOS % 3.4 % (0-4.5); HEMATOCRIT 29.5 % (32.4-45.2); HEMOGLOBIN 9.4 GM/dL (10.7-15.3); MCHC 31.9 g/dl (32.0-36.0); MEAN CELL VOLUME 81.4 fl (80-96); MEAN PLT VOLUME 7.2 fl (7.5-11.1); MONO % 9.4 % (3.8-10.2); NEUT % 59.5 % (42.8-82.8); PLATELET COUNT 438 10^3/uL (134-434); RBC 3.62 M/mm3 (3.60-5.2); RDW 16.2 % (11.6-15.6); WHITE BLOOD COUNT 7.2 K/mm3 (4.0-10.0)
[2022-11-27 10:52] LABS: CALCIUM 8.9 mg/dL (8.5-10.1)
[2022-11-27 10:53] LABS: ALBUMIN 3.4 g/dl (3.4-5.0); BLOOD UREA NITROGEN 8.9 mg/dL (7-18)
[2022-11-27 10:55] LABS: CREATININE 0.7 mg/dL (0.55-1.3)
[2022-11-27 10:57] LABS: BILIRUBIN,TOTAL 0.5 mg/dL (0.2-1)
[2022-11-27] MEDS: PANTOPRAZOLE 40 MG TABLET PO SCH (16:24)
[2022-11-27] MEDS ORDERED: ACETAMINOPHEN 325 MG TABLET (FP) PO PRN (16:43)
[2022-11-27] MEDS: ATORVASTATIN CA 20 MG TABLET (FP) PO SCH (21:26)
[2022-11-27] MEDS ORDERED: ROSUVASTATIN CA 10 MG TABLET PO SCH ×2 (22:00)
[2022-11-28] MEDS: metFORMIN HCL 500 MG TABLET (FP) PO SCH ×2 (06:05→16:50)
[2022-11-28] MEDS: GABAPENTIN 100 MG CAPSULE PO SCH ×3 (06:05→22:45)
[2022-11-28] MEDS: INSULIN SLIDING SCALE (NOVOLOG) 1 VIAL SQ SCH ×3 (06:08→16:52)
[2022-11-28] MEDS: PANTOPRAZOLE 40 MG TABLET PO SCH (10:19)
[2022-11-28] MEDS: EZETIMIBE 10 MG TABLET (FP) PO SCH (10:19)
[2022-11-28] MEDS: amLODIPine BESYLATE 10 MG TABLET (FP) PO SCH (10:19)
[2022-11-28] MEDS: prednisoLONE ACETATE 1% OPHTH SUSP 5 ML BOTTLE OU SCH ×2 (10:19→22:49)
[2022-11-28] MEDS: ENOXAPARIN NA (PORCINE) 80 MG/0.8 ML DISP.SYRIN SQ SCH ×2 (10:19→22:45)
[2022-11-28] MEDS: CITALOPRAM HYDROBROMIDE 20 MG TABLET PO SCH (10:19)
[2022-11-28] MEDS: LISINOPRIL 20 MG TABLET PO SCH (10:19)
[2022-11-28 11:25] LABS: BASO % 0.7 % (0-2.0); EOS % 2.6 % (0-4.5); HEMATOCRIT 29.5 % (32.4-45.2); HEMOGLOBIN 9.4 GM/dL (10.7-15.3); LYMPH % 24.5 % (8-40); MCH 26.3 pg (25.7-33.7); MEAN CELL VOLUME 82.3 fl (80-96); MEAN PLT VOLUME 7.6 fl (7.5-11.1); MONO % 8.8 % (3.8-10.2); NEUT % 63.4 % (42.8-82.8); PLATELET COUNT 439 10^3/uL (134-434); RBC 3.59 M/mm3 (3.60-5.2); RDW 16.5 % (11.6-15.6); WHITE BLOOD COUNT 8.3 K/mm3 (4.0-10.0)
[2022-11-28 11:45] LABS: INR 1.16 (0.83-1.09); PROTHROMBIN TIME (PATIENT) 13.4 SEC (9.7-13.0)
[2022-11-28 11:54] LABS: CALCIUM 8.9 mg/dL (8.5-10.1)
[2022-11-28 11:55] LABS: ALBUMIN 3.2 g/dl (3.4-5.0); BLOOD UREA NITROGEN 10.7 mg/dL (7-18); MAGNESIUM 1.8 mg/dL (1.8-2.4)
[2022-11-28 11:58] LABS: BILIRUBIN,TOTAL 0.4 mg/dL (0.2-1); CREATININE 0.9 mg/dL (0.55-1.3)
[2022-11-28] MEDS: ATORVASTATIN CA 20 MG TABLET (FP) PO SCH (22:45)
[2022-11-29] MEDS: metFORMIN HCL 500 MG TABLET (FP) PO SCH (06:36)
[2022-11-29] MEDS: GABAPENTIN 100 MG CAPSULE PO SCH ×2 (06:37→15:43)
[2022-11-29] MEDS: INSULIN SLIDING SCALE (NOVOLOG) 1 VIAL SQ SCH ×2 (06:42→11:25)
[2022-11-29] MEDS: ENOXAPARIN NA (PORCINE) 80 MG/0.8 ML DISP.SYRIN SQ SCH (09:26)
[2022-11-29] MEDS: CITALOPRAM HYDROBROMIDE 20 MG TABLET PO SCH (09:26)
[2022-11-29] MEDS: prednisoLONE ACETATE 1% OPHTH SUSP 5 ML BOTTLE OU SCH (09:26)
[2022-11-29] MEDS: EZETIMIBE 10 MG TABLET (FP) PO SCH (09:26)
[2022-11-29] MEDS: amLODIPine BESYLATE 10 MG TABLET (FP) PO SCH (09:26)
[2022-11-29] MEDS: LISINOPRIL 20 MG TABLET PO SCH (09:26)
[2022-11-29] MEDS: PANTOPRAZOLE 40 MG TABLET PO SCH (09:26)
[2022-11-29 09:49] LABS: INR 1.23 (0.83-1.09); PROTHROMBIN TIME (PATIENT) 14.2 SEC (9.7-13.0)
[2022-11-29 09:52] LABS: BASO % 0.6 % (0-2.0); EOS % 2.8 % (0-4.5); HEMATOCRIT 29.8 % (32.4-45.2); HEMOGLOBIN 9.6 GM/dL (10.7-15.3); LYMPH % 24.2 % (8-40); MCH 26.2 pg (25.7-33.7); MCHC 32.3 g/dl (32.0-36.0); MEAN CELL VOLUME 80.9 fl (80-96); MEAN PLT VOLUME 7.5 fl (7.5-11.1); MONO % 7.8 % (3.8-10.2); NEUT % 64.6 % (42.8-82.8); PLATELET COUNT 457 10^3/uL (134-434); RBC 3.68 M/mm3 (3.60-5.2); RDW 16.3 % (11.6-15.6); WHITE BLOOD COUNT 9.1 K/mm3 (4.0-10.0)
[2022-11-29 10:57] LABS: ALBUMIN 3.3 g/dl (3.4-5.0)
[2022-11-29 10:58] LABS: BLOOD UREA NITROGEN 10.4 mg/dL (7-18)
[2022-11-29 11:00] LABS: CREATININE 0.8 mg/dL (0.55-1.3)
[2022-11-29 11:02] LABS: BILIRUBIN,TOTAL 0.6 mg/dL (0.2-1); TOT PROT 7.3 g/dl (6.4-8.2)
[2022-11-29] MEDS ORDERED: INSULIN (NOVOLOG) ASPART 100 UNITS/ML 10ML VIAL ONE (11:24)
[2022-11-29 15:38] VITALS: BP 124/75; PULSE 96; RESP 18; TEMP 98.8
== END 2022-11-29 15:48 | disposition home health service (06) | DRG 301 ==
LOC: JER 14:13 → JERBED 17:38 → J8W 20:19
PROVIDERS: ADMIT Internal Medicine; ATTEND Nurse Practitioner Acute Care
DX: I82.401 Acute embolism and thrombosis of unspecified deep veins of right lower extremity (principal); E11.9 Type 2 diabetes mellitus without complications; J45.909 Unspecified asthma, uncomplicated; J44.9 Chronic obstructive pulmonary disease, unspecified; E78.5 Hyperlipidemia, unspecified; I11.0 Hypertensive heart disease with heart failure; I69.392 Facial weakness following cerebral infarction; I50.9 Heart failure, unspecified
CPT/HCPCS: 0241U-QW; 36415; 80053; 82962; 83036; 83735; 85025; 85379; 85610; 85730; 93005; 93010; 93970-TC; 97116-GP; 97161-GP; 99285-25

== ENCOUNTER 2022-12-29 11:20 | Inpatient (IN) | payer OTHER, BC ==
[2022-12-29 11:35] VITALS: BMI 33.6
[2022-12-29] MEDS ORDERED: METOCLOPRAMIDE HCL INJECTION 10 MG/2 ML VIAL IVPB ONE (11:57)
[2022-12-29] MEDS ORDERED: CLOTRIMAZOLE 1% CREAM TP ONE (12:15)
[2022-12-29] MEDS ORDERED: METOCLOPRAMIDE HCL INJECTION 10 MG/2 ML VIAL ONE (12:23)
[2022-12-29 14:19] LABS: EOS % 0.2 % (0-4.5); HEMATOCRIT 32.1 % (32.4-45.2); HEMOGLOBIN 10.2 GM/dL (10.7-15.3); LYMPH % 11.7 % (8-40); MCH 25.5 pg (25.7-33.7); MCHC 31.9 g/dl (32.0-36.0); MEAN CELL VOLUME 79.9 fl (80-96); MONO % 4.1 % (3.8-10.2); PLATELET COUNT 475 10^3/uL (134-434); RBC 4.02 M/mm3 (3.60-5.2); RDW 14.8 % (11.6-15.6); WHITE BLOOD COUNT 11.3 K/mm3 (4.0-10.0)
[2022-12-29 14:23] LABS: INR 2.05 (0.83-1.09); PROTHROMBIN TIME (PATIENT) 23.6 SEC (9.7-13.0)
[2022-12-29 14:25] LABS: ACTIVATED PTT 33.3 SECONDS (25.2-36.5)
[2022-12-29 14:33] LABS: CHLORIDE 105 mmol/L (98-107); SODIUM 138 mmol/L (136-145)
[2022-12-29 14:35] LABS: CALCIUM 9.5 mg/dL (8.5-10.1)
[2022-12-29 14:36] LABS: ALBUMIN 3.7 g/dl (3.4-5.0); ANION GAP 7 MMOL/L (8-16); BLOOD UREA NITROGEN 10.1 mg/dL (7-18); CO2 25 mmol/L (21-32); GLUCOSE,RANDOM 111 mg/dL (74-106)
[2022-12-29 14:39] LABS: CREATININE 0.6 mg/dL (0.55-1.3); SGOT/AST 12 U/L (15-37); SGPT/ALT 13 U/L (13-61)
[2022-12-29 14:40] LABS: TOT PROT 8.3 g/dl (6.4-8.2)
[2022-12-29 14:41] LABS: BILIRUBIN,TOTAL 0.3 mg/dL (0.2-1)
[2022-12-29 14:42] LABS: ALK PHOS 96 U/L (45-117)
[2022-12-29] MEDS ORDERED: ALBUTEROL SO4 HFA INHALER IH PRN (18:34)
[2022-12-29] MEDS ORDERED: MECLIZINE HCL 12.5 MG TABLET PO PRN (18:34)
[2022-12-29 21:32] LABS: CHOLESTEROL 132 mg/dL (50-200)
[2022-12-29 21:33] LABS: IRON SERUM 19 ug/dL (50-175); LDL CHOLESTEROL (ONLY SJRH) 49 mg/dL (5-100); TOTAL IRON BINDING CAPACITY 422 ug/dL (250-450); TRIGLYCERIDES 66 mg/dL (0-150)
[2022-12-29 21:36] LABS: HDL CHOLESTEROL 71 mg/dL (40-60)
[2022-12-29] MEDS: APIXABAN 5 MG TABLET PO SCH (22:38)
[2022-12-29] MEDS: INSULIN SLIDING SCALE (NOVOLOG) 1 VIAL SQ SCH (23:28)
[2022-12-30] MEDS: INSULIN SLIDING SCALE (NOVOLOG) 1 VIAL SQ SCH ×3 (06:48→16:44)
[2022-12-30 07:53] LABS: BASO % 0.6 % (0-2.0); EOS % 1.2 % (0-4.5); HEMATOCRIT 29.4 % (32.4-45.2); HEMOGLOBIN 9.7 GM/dL (10.7-15.3); LYMPH % 21.2 % (8-40); MCH 25.9 pg (25.7-33.7); MCHC 32.8 g/dl (32.0-36.0); MEAN CELL VOLUME 78.8 fl (80-96); MONO % 9.3 % (3.8-10.2); NEUT % 67.7 % (42.8-82.8); PLATELET COUNT 483 10^3/uL (134-434); RBC 3.73 M/mm3 (3.60-5.2); WHITE BLOOD COUNT 8.4 K/mm3 (4.0-10.0)
[2022-12-30 08:17] LABS: ALBUMIN 3.3 g/dl (3.4-5.0); CALCIUM 9.4 mg/dL (8.5-10.1)
[2022-12-30 08:18] LABS: BLOOD UREA NITROGEN 10.9 mg/dL (7-18)
[2022-12-30 08:20] LABS: CREATININE 0.8 mg/dL (0.55-1.3)
[2022-12-30 08:22] LABS: BILIRUBIN,TOTAL 0.6 mg/dL (0.2-1); TOT PROT 7.5 g/dl (6.4-8.2)
[2022-12-30] MEDS: APIXABAN 5 MG TABLET PO SCH ×2 (09:15→21:50)
[2022-12-30] MEDS: amLODIPine BESYLATE 5 MG TABLET (FP) PO SCH (09:15)
[2022-12-30] MEDS ORDERED: CELECOXIB 200 MG CAPSULE PO SCH (10:00)
[2022-12-30] MEDS: metoPROLOL SUCCINATE 25 MG TAB.SR.24H (FP) PO SCH ×2 (19:47→21:51)
[2022-12-30] MEDS: FAMOTIDINE 20 MG TABLET PO SCH (21:54)
[2022-12-31] MEDS: INSULIN SLIDING SCALE (NOVOLOG) 1 VIAL SQ SCH ×3 (07:15→17:16)
[2022-12-31 08:32] LABS: HEMATOCRIT 29.8 % (32.4-45.2); HEMOGLOBIN 9.5 GM/dL (10.7-15.3); MCH 25.5 pg (25.7-33.7); MEAN CELL VOLUME 79.7 fl (80-96); PLATELET COUNT 465 10^3/uL (134-434); RBC 3.74 M/mm3 (3.60-5.2); RDW 14.9 % (11.6-15.6); WHITE BLOOD COUNT 7.5 K/mm3 (4.0-10.0)
[2022-12-31 08:51] LABS: CALCIUM 9.1 mg/dL (8.5-10.1)
[2022-12-31 08:55] LABS: CREATININE 0.7 mg/dL (0.55-1.3); PHOSPHOROUS 3.9 mg/dL (2.5-4.9)
[2022-12-31 09:32] VITALS: RESP 18
[2022-12-31] MEDS: APIXABAN 5 MG TABLET PO SCH ×2 (09:51→21:25)
[2022-12-31] MEDS: FAMOTIDINE 20 MG TABLET PO SCH ×2 (09:51→21:24)
[2022-12-31] MEDS: metoPROLOL SUCCINATE 25 MG TAB.SR.24H (FP) PO SCH ×2 (09:55→21:25)
[2022-12-31] MEDS: amLODIPine BESYLATE 5 MG TABLET (FP) PO SCH (11:07)
[2022-12-31 12:09] LABS: EPI CELLS 12 /uL (0-25.1); HYALINE CASTS 0 /uL (0-3.1); PH,URINE 5.5 (5.0-8.0); URINE APPEARANCE CLOUDY; URINE BACTERIA 5551 /uL (0-1359); URINE BILIRUBIN NEGATIVE (NEGATIVE); URINE COLOR YELLOW; URINE GLUCOSE (UA) NEGATIVE (NEGATIVE); URINE KETONE TRACE (NEGATIVE); URINE LEUK ESTERASE 1+ (NEGATIVE); URINE NITRITE POSITIVE (NEGATIVE); URINE PROTEIN TRACE (NEGATIVE); URINE RBC 19 /uL (0-23.9); URINE UROBILINOGEN 0.2 mg/dL (0.2-1.0); URINE WBC 24 /uL (0-25.8)
[2023-01-01] MEDS: INSULIN SLIDING SCALE (NOVOLOG) 1 VIAL SQ SCH ×5 (07:15→22:04)
[2023-01-01] MEDS: amLODIPine BESYLATE 5 MG TABLET (FP) PO SCH (09:18)
[2023-01-01] MEDS: metoPROLOL SUCCINATE 25 MG TAB.SR.24H (FP) PO SCH ×2 (09:18→21:17)
[2023-01-01] MEDS: FAMOTIDINE 20 MG TABLET PO SCH ×2 (09:18→21:17)
[2023-01-01] MEDS: APIXABAN 5 MG TABLET PO SCH ×2 (09:18→21:18)
[2023-01-01] MEDS ORDERED: CEFTRIAXONE 1 GM in DEXTROSE 5%-WATER - 50 ML IVPB ONE (09:30)
[2023-01-01] MEDS ORDERED: MECLIZINE HCL 12.5 MG TABLET PO ONE (10:45)
[2023-01-01 12:53] LABS: HEMATOCRIT 30.8 % (32.4-45.2); HEMOGLOBIN 9.9 GM/dL (10.7-15.3); MCH 25.7 pg (25.7-33.7); MCHC 32.2 g/dl (32.0-36.0); MEAN CELL VOLUME 79.9 fl (80-96); MEAN PLT VOLUME 7.3 fl (7.5-11.1); PLATELET COUNT 429 10^3/uL (134-434); RBC 3.86 M/mm3 (3.60-5.2); RDW 14.9 % (11.6-15.6); WHITE BLOOD COUNT 8.4 K/mm3 (4.0-10.0)
[2023-01-01 13:20] LABS: BLOOD UREA NITROGEN 13.4 mg/dL (7-18); MAGNESIUM 1.9 mg/dL (1.8-2.4)
[2023-01-01 13:23] LABS: CREATININE 0.8 mg/dL (0.55-1.3); PHOSPHOROUS 3.6 mg/dL (2.5-4.9)
[2023-01-01] MEDS: MECLIZINE HCL 12.5 MG TABLET PO SCH ×2 (14:05→21:17)
[2023-01-02] MEDS ORDERED: NAPROXEN 375 MG TABLET PO ONE (00:18)
[2023-01-02] MEDS ORDERED: METHYL SALICYLATE/MENTHOL OINT 30 GM TUBE TP SCH ×2 (00:21→10:00)
[2023-01-02] MEDS: INSULIN SLIDING SCALE (NOVOLOG) 1 VIAL SQ SCH ×4 (06:36→22:37)
[2023-01-02] MEDS: MECLIZINE HCL 12.5 MG TABLET PO SCH ×3 (06:38→22:30)
[2023-01-02 08:11] LABS: HEMATOCRIT 27.7 % (32.4-45.2); HEMOGLOBIN 9.3 GM/dL (10.7-15.3); MCH 26.5 pg (25.7-33.7); MCHC 33.5 g/dl (32.0-36.0); MEAN CELL VOLUME 79.2 fl (80-96); MEAN PLT VOLUME 6.7 fl (7.5-11.1); PLATELET COUNT 446 10^3/uL (134-434); RDW 14.6 % (11.6-15.6); WHITE BLOOD COUNT 7.9 K/mm3 (4.0-10.0)
[2023-01-02 08:45] LABS: BLOOD UREA NITROGEN 12.9 mg/dL (7-18); CALCIUM 8.8 mg/dL (8.5-10.1)
[2023-01-02 08:49] LABS: CREATININE 0.8 mg/dL (0.55-1.3); PHOSPHOROUS 4.1 mg/dL (2.5-4.9)
[2023-01-02] MEDS: metoPROLOL SUCCINATE 25 MG TAB.SR.24H (FP) PO SCH ×2 (09:28→22:29)
[2023-01-02] MEDS: APIXABAN 5 MG TABLET PO SCH ×2 (09:28→22:29)
[2023-01-02] MEDS: amLODIPine BESYLATE 5 MG TABLET (FP) PO SCH (09:28)
[2023-01-02] MEDS: FAMOTIDINE 20 MG TABLET PO SCH ×2 (09:28→22:29)
[2023-01-02] MEDS ORDERED: CEFTRIAXONE 1 GM in DEXTROSE 5%-WATER - 50 ML IVPB SCH (10:00)
[2023-01-03 00:50] VITALS: BP 134/68; PULSE 88; TEMP 98
== END 2023-01-03 00:45 | DRG 690 ==
LOC: JER 11:20 → JERBED 15:19 → J4W 21:16 → OBSVTOIN 12-31 18:27
PROVIDERS: ADMIT Internal Medicine; ATTEND Internal Medicine
DX: N39.0 Urinary tract infection, site not specified (principal); I24.8 Other forms of acute ischemic heart disease; I50.32 Chronic diastolic (congestive) heart failure; J44.9 Chronic obstructive pulmonary disease, unspecified; I11.0 Hypertensive heart disease with heart failure; Z86.73 Personal history of transient ischemic attack (TIA), and cerebral infarction without residual deficits; E78.00 Pure hypercholesterolemia, unspecified; Z86.718 Personal history of other venous thrombosis and embolism; H54.40 Blindness, one eye, unspecified eye; D72.829 Elevated white blood cell count, unspecified; D75.839 Thrombocytosis, unspecified; D50.9 Iron deficiency anemia, unspecified; M25.511 Pain in right shoulder
CPT/HCPCS: 0241U-QW; 36415; 70450-TC; 71045-TC-FY; 72125-TC; 72170-TC-FY; 73030-TC-RT-FY; 80048; 80053; 80061; 81003; 82550; 82728; 82962; 83036; 83540; 83550; 83735; 84100; 84443; 84484; 85025; 85027; 85610; 85730; 87086; 87186; 93005; 93010; 97116-GP; 97162-GP; 99285-25; G0378

== ENCOUNTER 2023-02-10 16:48 | Emergency (ER) | payer OTHER, BC ==
[2023-02-10 16:54] VITALS: BP 152/64; PULSE 108; RESP 18; TEMP 97.9; BMI 34.0
[2023-02-10 20:24] LABS: BASO % 0.4 % (0-2.0); EOS % 0.1 % (0-4.5); HEMATOCRIT 29.6 % (32.4-45.2); HEMOGLOBIN 9.9 GM/dL (10.7-15.3); LYMPH % 12.1 % (8-40); MCH 25.8 pg (25.7-33.7); MCHC 33.3 g/dl (32.0-36.0); MEAN CELL VOLUME 77.4 fl (80-96); MEAN PLT VOLUME 7.4 fl (7.5-11.1); MONO % 7.6 % (3.8-10.2); NEUT % 79.8 % (42.8-82.8); PLATELET COUNT 504 10^3/uL (134-434); RBC 3.82 M/mm3 (3.60-5.2); RDW 16.9 % (11.6-15.6); WHITE BLOOD COUNT 10.1 K/mm3 (4.0-10.0)
[2023-02-10 20:33] LABS: INR 2.27 (0.83-1.09); PROTHROMBIN TIME (PATIENT) 26.1 SEC (9.7-13.0)
[2023-02-10 20:58] LABS: CALCIUM 9.1 mg/dL (8.5-10.1)
[2023-02-10 20:59] LABS: ALBUMIN 3.2 g/dl (3.4-5.0); BLOOD UREA NITROGEN 19.1 mg/dL (7-18)
[2023-02-10 21:02] LABS: CREATININE 0.9 mg/dL (0.55-1.3)
[2023-02-10 21:03] LABS: BILIRUBIN,TOTAL 0.4 mg/dL (0.2-1)
[2023-02-10 23:17] LABS: EPI CELLS >36 /uL (0-25.1); HYALINE CASTS 10 /uL (0-3.1); URINE APPEARANCE CLOUDY; URINE BACTERIA 122 /uL (0-1359); URINE BILIRUBIN NEGATIVE (NEGATIVE); URINE COLOR YELLOW; URINE GLUCOSE (UA) NEGATIVE (NEGATIVE); URINE KETONE TRACE (NEGATIVE); URINE LEUK ESTERASE 1+ (NEGATIVE); URINE NITRITE NEGATIVE (NEGATIVE); URINE PROTEIN 1+ (NEGATIVE); URINE WBC 60 /uL (0-25.8)
[2023-02-10] MEDS ORDERED: CEPHALEXIN MONOHYDRATE 500 MG CAPSULE (UD) PO ONE (23:48)
[2023-02-11] MEDS ORDERED: CEPHALEXIN MONOHYDRATE 500 MG CAPSULE (UD) ONE (00:07)
[2023-02-11 00:41] LABS: URINE RBC 18.3 /uL (0-23.9)
== END 2023-02-11 00:28 | disposition home or self-care (01) ==
LOC: JER 16:48
DX: M25.561 Pain in right knee (principal)
CPT/HCPCS: 0241U-QW; 36415; 71046-TC-FY; 72170-TC-FY; 73502-TC-RT-FY; 73562-TC-RT-FY; 80053; 81003; 84484; 85025; 85610; 85730; 87086; 93005; 93010; 93971-TC; 99285-25

== ENCOUNTER 2023-03-24 11:39 | Inpatient (IN) | payer OTHER, BC ==
[2023-03-24 12:14] VITALS: BMI 32.5
[2023-03-24] MEDS ORDERED: ONDANSETRON 4 MG/2 ML VIAL IVPUSH ONE (12:17)
[2023-03-24] MEDS ORDERED: ACETAMINOPHEN 1000 MG/100 ML BAG IVPB ONE (12:17)
[2023-03-24 13:54] LABS: BASO % 0.7 % (0-2.0); EOS % 0.5 % (0-4.5); HEMATOCRIT 36.1 % (32.4-45.2); HEMOGLOBIN 11.4 GM/dL (10.7-15.3); LYMPH % 14.1 % (8-40); MCH 24.6 pg (25.7-33.7); MCHC 31.7 g/dl (32.0-36.0); MEAN CELL VOLUME 77.5 fl (80-96); MEAN PLT VOLUME 7.6 fl (7.5-11.1); MONO % 7.6 % (3.8-10.2); NEUT % 77.1 % (42.8-82.8); PLATELET COUNT 443 10^3/uL (134-434); RBC 4.65 M/mm3 (3.60-5.2); RDW 17.5 % (11.6-15.6); WHITE BLOOD COUNT 10.1 K/mm3 (4.0-10.0)
[2023-03-24 13:57] LABS: EPI CELLS 21 /uL (0-25.1); HYALINE CASTS 6 /uL (0-3.1); URINE APPEARANCE CLOUDY; URINE BACTERIA 80 /uL (0-1359); URINE BILIRUBIN NEGATIVE (NEGATIVE); URINE COLOR YELLOW; URINE GLUCOSE (UA) NEGATIVE (NEGATIVE); URINE KETONE TRACE (NEGATIVE); URINE LEUK ESTERASE 2+ (NEGATIVE); URINE NITRITE NEGATIVE (NEGATIVE); URINE PROTEIN 1+ (NEGATIVE); URINE RBC 216 /uL (0-23.9); URINE WBC 582 /uL (0-25.8)
[2023-03-24] MEDS ORDERED: CEFTRIAXONE 1 GM in DEXTROSE 5%-WATER - 100 ML IVPB ONE (14:01)
[2023-03-24] MEDS ORDERED: CEFTRIAXONE 1 GM/50 ML BAG ONE (14:04)
[2023-03-24] MEDS ORDERED: ONDANSETRON 4 MG/2 ML VIAL ONE (14:04)
[2023-03-24] MEDS ORDERED: ACETAMINOPHEN INJECTION 100 ML IVPB ONE (14:04)
[2023-03-24] MEDS ORDERED: SODIUM CHLORIDE 0.9% 500 ML INFUS.BAG IV ONE (14:26)
[2023-03-24 14:50] LABS: VENOUS BASE EXCESS 1.1 mmol/L (-2-2); VENOUS O2 SATURATION 83.4 % (70-80); VENOUS PCO2 42.7 mmHg (38-52); VENOUS PH 7.403 (7.310-7.410)
[2023-03-24 14:58] LABS: INR 2.52 (0.83-1.09)
[2023-03-24 15:00] LABS: ACTIVATED PTT 35.6 SECONDS (25.2-36.5)
[2023-03-24 15:13] LABS: POTASSIUM 4.4 mmol/L (3.5-5.1)
[2023-03-24 15:15] LABS: CALCIUM 9.9 mg/dL (8.5-10.1)
[2023-03-24 15:16] LABS: ALBUMIN 3.4 g/dl (3.4-5.0); BLOOD UREA NITROGEN 15.9 mg/dL (7-18)
[2023-03-24 15:19] LABS: CREATININE 0.8 mg/dL (0.55-1.3)
[2023-03-24 15:21] LABS: BILIRUBIN,TOTAL 0.5 mg/dL (0.2-1); TOT PROT 8.4 g/dl (6.4-8.2)
[2023-03-24] MEDS ORDERED: ALBUTEROL SO4 HFA INHALER IH PRN (18:15)
[2023-03-24] MEDS ORDERED: ONDANSETRON 4 MG/2 ML VIAL IVPUSH PRN (18:16)
[2023-03-24] MEDS ORDERED: LACTATED RINGERS SOLUTION 500 ML IV SCH (18:30)
[2023-03-24] MEDS ORDERED: ROSUVASTATIN CA 10 MG TABLET PO SCH (22:00)
[2023-03-24] MEDS: APIXABAN 5 MG TABLET PO SCH (23:08)
[2023-03-24] MEDS: FAMOTIDINE 20 MG TABLET PO SCH (23:08)
[2023-03-24] MEDS: MECLIZINE HCL 12.5 MG TABLET PO SCH (23:09)
[2023-03-24] MEDS: GABAPENTIN 100 MG CAPSULE PO SCH (23:09)
[2023-03-24] MEDS: metoPROLOL SUCCINATE 25 MG TAB.SR.24H (FP) PO SCH (23:09)
[2023-03-24] MEDS: INSULIN SLIDING SCALE (NOVOLOG) 1 VIAL SQ SCH (23:13)
[2023-03-25] MEDS: MECLIZINE HCL 12.5 MG TABLET PO SCH ×2 (06:36→14:33)
[2023-03-25] MEDS: GABAPENTIN 100 MG CAPSULE PO SCH ×3 (06:36→21:13)
[2023-03-25] MEDS: INSULIN SLIDING SCALE (NOVOLOG) 1 VIAL SQ SCH ×4 (06:36→21:01)
[2023-03-25] MEDS ORDERED: INSULIN SLIDING SCALE (NOVOLOG) 1 VIAL SQ ONE (06:51)
[2023-03-25 08:18] LABS: EOS % 1.8 % (0-4.5); HEMATOCRIT 28.6 % (32.4-45.2); HEMOGLOBIN 9.5 GM/dL (10.7-15.3); MCH 25.5 pg (25.7-33.7); MCHC 33.2 g/dl (32.0-36.0); MEAN CELL VOLUME 76.9 fl (80-96); MONO % 9.6 % (3.8-10.2); NEUT % 65.6 % (42.8-82.8); PLATELET COUNT 447 10^3/uL (134-434); RBC 3.72 M/mm3 (3.60-5.2); RDW 17.2 % (11.6-15.6); WHITE BLOOD COUNT 7.5 K/mm3 (4.0-10.0)
[2023-03-25 08:39] LABS: POTASSIUM 4.4 mmol/L (3.5-5.1)
[2023-03-25 08:45] LABS: ALBUMIN 2.9 g/dl (3.4-5.0); BLOOD UREA NITROGEN 14.2 mg/dL (7-18)
[2023-03-25 08:47] LABS: CREATININE 0.7 mg/dL (0.55-1.3); MAGNESIUM 1.9 mg/dL (1.8-2.4)
[2023-03-25 08:48] LABS: PHOSPHOROUS 3.4 mg/dL (2.5-4.9)
[2023-03-25 08:49] LABS: BILIRUBIN,TOTAL 0.4 mg/dL (0.2-1); TOT PROT 6.9 g/dl (6.4-8.2)
[2023-03-25] MEDS: FAMOTIDINE 20 MG TABLET PO SCH ×2 (09:35→21:13)
[2023-03-25] MEDS: FERROUS SO4 325 MG TABLET (FP) PO SCH (09:35)
[2023-03-25] MEDS: amLODIPine BESYLATE 10 MG TABLET (FP) PO SCH (09:35)
[2023-03-25] MEDS: APIXABAN 5 MG TABLET PO SCH ×2 (09:35→21:13)
[2023-03-25] MEDS: metoPROLOL SUCCINATE 25 MG TAB.SR.24H (FP) PO SCH ×2 (09:35→21:13)
[2023-03-25] MEDS: CEFTRIAXONE 1 GM in DEXTROSE 5%-WATER - 50 ML IVPB SCH (16:49)
[2023-03-25] MEDS: ROSUVASTATIN CA 20 MG TABLET PO SCH (21:13)
[2023-03-26] MEDS: GABAPENTIN 100 MG CAPSULE PO SCH ×3 (05:51→21:23)
[2023-03-26] MEDS: INSULIN SLIDING SCALE (NOVOLOG) 1 VIAL SQ SCH ×4 (06:01→21:12)
[2023-03-26 08:11] LABS: HEMATOCRIT 30.6 % (32.4-45.2); HEMOGLOBIN 9.8 GM/dL (10.7-15.3); MCH 24.7 pg (25.7-33.7); MCHC 31.8 g/dl (32.0-36.0); MEAN CELL VOLUME 77.5 fl (80-96); MEAN PLT VOLUME 6.6 fl (7.5-11.1); PLATELET COUNT 436 10^3/uL (134-434); RBC 3.95 M/mm3 (3.60-5.2); RDW 17.6 % (11.6-15.6); WHITE BLOOD COUNT 8.8 K/mm3 (4.0-10.0)
[2023-03-26 08:24] LABS: POTASSIUM 4.2 mmol/L (3.5-5.1)
[2023-03-26 08:27] LABS: CALCIUM 9.3 mg/dL (8.5-10.1)
[2023-03-26 08:28] LABS: ALBUMIN 2.8 g/dl (3.4-5.0); BLOOD UREA NITROGEN 10.1 mg/dL (7-18)
[2023-03-26 08:31] LABS: CREATININE 0.8 mg/dL (0.55-1.3)
[2023-03-26 08:33] LABS: BILIRUBIN,TOTAL 0.5 mg/dL (0.2-1); TOT PROT 7.2 g/dl (6.4-8.2)
[2023-03-26] MEDS ORDERED: ACETAMINOPHEN 325 MG TABLET (FP) PO PRN (08:50)
[2023-03-26] MEDS: amLODIPine BESYLATE 10 MG TABLET (FP) PO SCH (09:33)
[2023-03-26] MEDS: FAMOTIDINE 20 MG TABLET PO SCH ×2 (09:33→21:23)
[2023-03-26] MEDS: APIXABAN 5 MG TABLET PO SCH ×2 (09:34→21:23)
[2023-03-26] MEDS: FERROUS SO4 325 MG TABLET (FP) PO SCH (09:34)
[2023-03-26] MEDS: metoPROLOL SUCCINATE 25 MG TAB.SR.24H (FP) PO SCH ×2 (09:34→21:23)
[2023-03-26] MEDS: CEFTRIAXONE 1 GM in DEXTROSE 5%-WATER - 50 ML IVPB SCH (09:48)
[2023-03-26] MEDS: LIDOCAINE 5% TOPICAL PATCH TP SCH (16:30)
[2023-03-26] MEDS: ACETAMINOPHEN 325 MG TABLET (FP) PO SCH ×2 (17:47→22:19)
[2023-03-26] MEDS: ROSUVASTATIN CA 20 MG TABLET PO SCH (21:22)
[2023-03-26] MEDS: LIDOCAINE PATCH REMOVAL MC SCH (21:23)
[2023-03-27] MEDS: ACETAMINOPHEN 325 MG TABLET (FP) PO SCH ×5 (06:08→21:21)
[2023-03-27] MEDS: GABAPENTIN 100 MG CAPSULE PO SCH ×3 (06:08→21:20)
[2023-03-27] MEDS: INSULIN SLIDING SCALE (NOVOLOG) 1 VIAL SQ SCH ×4 (07:57→21:21)
[2023-03-27] MEDS: LIDOCAINE 5% TOPICAL PATCH TP SCH (09:54)
[2023-03-27] MEDS: CEFTRIAXONE 1 GM in DEXTROSE 5%-WATER - 50 ML IVPB SCH (09:54)
[2023-03-27] MEDS: FERROUS SO4 325 MG TABLET (FP) PO SCH (09:58)
[2023-03-27] MEDS: amLODIPine BESYLATE 10 MG TABLET (FP) PO SCH (09:58)
[2023-03-27] MEDS: FAMOTIDINE 20 MG TABLET PO SCH ×2 (09:58→21:20)
[2023-03-27] MEDS: APIXABAN 5 MG TABLET PO SCH ×2 (09:58→21:20)
[2023-03-27] MEDS: metoPROLOL SUCCINATE 25 MG TAB.SR.24H (FP) PO SCH ×2 (09:58→21:20)
[2023-03-27] MEDS: LIDOCAINE PATCH REMOVAL MC SCH (21:20)
[2023-03-27] MEDS: ROSUVASTATIN CA 20 MG TABLET PO SCH (21:20)
[2023-03-28] MEDS: GABAPENTIN 100 MG CAPSULE PO SCH ×3 (06:07→21:02)
[2023-03-28] MEDS: ACETAMINOPHEN 325 MG TABLET (FP) PO SCH ×5 (06:07→21:03)
[2023-03-28] MEDS: INSULIN SLIDING SCALE (NOVOLOG) 1 VIAL SQ SCH ×4 (06:16→21:05)
[2023-03-28 07:47] LABS: HEMATOCRIT 28.8 % (32.4-45.2); HEMOGLOBIN 9.5 GM/dL (10.7-15.3); MCH 25.4 pg (25.7-33.7); MCHC 32.9 g/dl (32.0-36.0); MEAN CELL VOLUME 77.2 fl (80-96); MEAN PLT VOLUME 6.9 fl (7.5-11.1); PLATELET COUNT 453 10^3/uL (134-434); RBC 3.73 M/mm3 (3.60-5.2); WHITE BLOOD COUNT 6.2 K/mm3 (4.0-10.0)
[2023-03-28 08:06] LABS: POTASSIUM 4.4 mmol/L (3.5-5.1)
[2023-03-28 08:08] LABS: BLOOD UREA NITROGEN 14.7 mg/dL (7-18)
[2023-03-28 08:13] LABS: CREATININE 0.7 mg/dL (0.55-1.3); PHOSPHOROUS 3.1 mg/dL (2.5-4.9)
[2023-03-28] MEDS: metoPROLOL SUCCINATE 25 MG TAB.SR.24H (FP) PO SCH ×2 (09:31→21:02)
[2023-03-28] MEDS: CEFTRIAXONE 1 GM in DEXTROSE 5%-WATER - 50 ML IVPB SCH (09:31)
[2023-03-28] MEDS: FAMOTIDINE 20 MG TABLET PO SCH ×2 (09:32→21:02)
[2023-03-28] MEDS: FERROUS SO4 325 MG TABLET (FP) PO SCH (09:32)
[2023-03-28] MEDS: amLODIPine BESYLATE 10 MG TABLET (FP) PO SCH (09:32)
[2023-03-28] MEDS: APIXABAN 5 MG TABLET PO SCH ×2 (09:32→21:02)
[2023-03-28] MEDS: LIDOCAINE 5% TOPICAL PATCH TP SCH (09:32)
[2023-03-28] MEDS: ROSUVASTATIN CA 20 MG TABLET PO SCH (21:02)
[2023-03-28] MEDS: LIDOCAINE PATCH REMOVAL MC SCH (21:03)
[2023-03-29] MEDS: GABAPENTIN 100 MG CAPSULE PO SCH ×2 (05:59→14:26)
[2023-03-29] MEDS: ACETAMINOPHEN 325 MG TABLET (FP) PO SCH ×3 (06:02→14:27)
[2023-03-29] MEDS: INSULIN SLIDING SCALE (NOVOLOG) 1 VIAL SQ SCH ×2 (06:03→11:50)
[2023-03-29 06:56] LABS: HEMATOCRIT 29.7 % (32.4-45.2); HEMOGLOBIN 9.8 GM/dL (10.7-15.3); MCH 25.3 pg (25.7-33.7); MCHC 32.9 g/dl (32.0-36.0); MEAN CELL VOLUME 76.9 fl (80-96); PLATELET COUNT 462 10^3/uL (134-434); RBC 3.86 M/mm3 (3.60-5.2); RDW 16.9 % (11.6-15.6)
[2023-03-29 08:16] VITALS: PULSE 69; RESP 19
[2023-03-29] MEDS: CEFTRIAXONE 1 GM in DEXTROSE 5%-WATER - 50 ML IVPB SCH (10:01)
[2023-03-29] MEDS: LIDOCAINE 5% TOPICAL PATCH TP SCH (10:02)
[2023-03-29] MEDS: metoPROLOL SUCCINATE 25 MG TAB.SR.24H (FP) PO SCH (10:03)
[2023-03-29] MEDS: FAMOTIDINE 20 MG TABLET PO SCH (10:03)
[2023-03-29] MEDS: amLODIPine BESYLATE 10 MG TABLET (FP) PO SCH (10:03)
[2023-03-29] MEDS: APIXABAN 5 MG TABLET PO SCH (10:03)
[2023-03-29] MEDS: FERROUS SO4 325 MG TABLET (FP) PO SCH (10:03)
[2023-03-29 14:59] VITALS: BP 129/69; TEMP 98.8
[2023-03-29] MEDS ORDERED: POLYETHYLENE GLYCOL (HEALTHYLAX) 3350 17 GM PACKET PO SCH (22:00)
== END 2023-03-29 16:18 | DRG 689 ==
LOC: JER 11:39 → OBSVTOIN 14:31 → JERBED 14:31 → J4S 22:36
PROVIDERS: ADMIT Internal Medicine; ATTEND Internal Medicine
DX: N39.0 Urinary tract infection, site not specified (principal); G93.41 Metabolic encephalopathy; I50.32 Chronic diastolic (congestive) heart failure; E11.40 Type 2 diabetes mellitus with diabetic neuropathy, unspecified; I11.0 Hypertensive heart disease with heart failure; R07.89 Other chest pain; D50.9 Iron deficiency anemia, unspecified; J44.9 Chronic obstructive pulmonary disease, unspecified; E78.5 Hyperlipidemia, unspecified; Z86.73 Personal history of transient ischemic attack (TIA), and cerebral infarction without residual deficits
CPT/HCPCS: 0241U-QW; 36415; 70450-TC; 70551-TC; 71045-TC-FY; 72148-TC; 80048; 80053; 80061; 81003; 82085; 82550; 82803; 82962; 83690; 83735; 84100; 84155; 84165; 84484; 85025; 85027; 85610; 85730; 87086; 93005; 93010; 93880-TC; 97116-GP; 99285-25

== ENCOUNTER 2023-10-07 16:20 | Observation (INO) | payer OTHER, BC ==
[2023-10-07 19:07] LABS: BASO % 1.1 % (0-2.0); EOS % 1.7 % (0-4.5); HEMATOCRIT 33.9 % (32.4-45.2); HEMOGLOBIN 10.7 GM/dL (10.7-15.3); LYMPH % 14.5 % (8-40); MCH 24.4 pg (25.7-33.7); MCHC 31.5 g/dl (32.0-36.0); MEAN CELL VOLUME 77.4 fl (80-96); MEAN PLT VOLUME 6.9 fl (7.5-11.1); NEUT % 75.7 % (42.8-82.8); PLATELET COUNT 441 10^3/uL (134-434); RBC 4.38 M/mm3 (3.60-5.2); RDW 16.3 % (11.6-15.6); WHITE BLOOD COUNT 9.4 K/mm3 (4.0-10.0)
[2023-10-07 19:20] LABS: POTASSIUM 4.6 mmol/L (3.5-5.1)
[2023-10-07 19:22] LABS: CALCIUM 8.9 mg/dL (8.5-10.1)
[2023-10-07 19:23] LABS: ALBUMIN 3.3 g/dl (3.4-5.0); BLOOD UREA NITROGEN 17.8 mg/dL (7-18)
[2023-10-07 19:26] LABS: CREATININE 1.1 mg/dL (0.55-1.3)
[2023-10-07 19:27] LABS: BILIRUBIN,TOTAL 0.7 mg/dL (0.2-1); TOT PROT 8.2 g/dl (6.4-8.2)
[2023-10-07 20:58] LABS: INR 1.72 (0.83-1.09); PROTHROMBIN TIME (PATIENT) 19.9 SEC (9.7-13.0)
[2023-10-07 21:01] LABS: ACTIVATED PTT 31.3 SECONDS (25.2-36.5)
[2023-10-07] MEDS ORDERED: ACETAMINOPHEN 325 MG TABLET (FP) PO ONE (21:22)
[2023-10-07] MEDS ORDERED: ACETAMINOPHEN 325 MG TABLET (FP) ONE (21:24)
[2023-10-08] MEDS ORDERED: MECLIZINE HCL 12.5 MG TABLET PO PRN ×2 (00:32→02:53)
[2023-10-08] MEDS ORDERED: ALBUTEROL SO4 HFA INHALER IH PRN (00:32)
[2023-10-08 00:39] LABS: PH,URINE 5.5 (5.0-8.0); URINE APPEARANCE CLEAR; URINE BILIRUBIN NEGATIVE (NEGATIVE); URINE COLOR YELLOW; URINE GLUCOSE (UA) NEGATIVE (NEGATIVE); URINE KETONE NEGATIVE (NEGATIVE); URINE LEUK ESTERASE NEGATIVE (NEGATIVE); URINE NITRITE NEGATIVE (NEGATIVE); URINE PROTEIN TRACE (NEGATIVE)
[2023-10-08] MEDS ORDERED: GABAPENTIN 100 MG CAPSULE ONE (06:09)
[2023-10-08] MEDS: GABAPENTIN 100 MG CAPSULE PO SCH ×3 (06:13→22:10)
[2023-10-08 07:05] LABS: HEMATOCRIT 32.7 % (32.4-45.2); HEMOGLOBIN 10.4 GM/dL (10.7-15.3); MCH 24.7 pg (25.7-33.7); MCHC 31.6 g/dl (32.0-36.0); MEAN PLT VOLUME 7.1 fl (7.5-11.1); PLATELET COUNT 432 10^3/uL (134-434); RDW 16.6 % (11.6-15.6); WHITE BLOOD COUNT 7.6 K/mm3 (4.0-10.0)
[2023-10-08 07:37] LABS: ALBUMIN 3.2 g/dl (3.4-5.0); BLOOD UREA NITROGEN 13.9 mg/dL (7-18); CALCIUM 8.9 mg/dL (8.5-10.1); MAGNESIUM 1.9 mg/dL (1.8-2.4)
[2023-10-08 07:40] LABS: CREATININE 0.8 mg/dL (0.55-1.3)
[2023-10-08 07:42] LABS: BILIRUBIN,TOTAL 0.4 mg/dL (0.2-1); TOT PROT 7.7 g/dl (6.4-8.2)
[2023-10-08] MEDS: INSULIN SLIDING SCALE (NOVOLOG) 1 VIAL SQ SCH ×4 (08:29→22:11)
[2023-10-08] MEDS ORDERED: APIXABAN 5 MG TABLET ONE (09:06)
[2023-10-08] MEDS ORDERED: amLODIPine BESYLATE 10 MG TABLET (FP) ONE (09:07)
[2023-10-08] MEDS ORDERED: FAMOTIDINE 20 MG TABLET ONE (09:07)
[2023-10-08] MEDS ORDERED: metoPROLOL SUCCINATE 25 MG TAB.SR.24H (FP) PO ONE (09:07)
[2023-10-08] MEDS: APIXABAN 5 MG TABLET PO SCH ×2 (09:15→22:10)
[2023-10-08] MEDS: FAMOTIDINE 20 MG TABLET PO SCH ×2 (09:15→22:10)
[2023-10-08] MEDS: amLODIPine BESYLATE 10 MG TABLET (FP) PO SCH (09:15)
[2023-10-08] MEDS: metoPROLOL SUCCINATE 25 MG TAB.SR.24H (FP) PO SCH ×2 (09:15→22:10)
[2023-10-08] MEDS ORDERED: ENOXAPARIN NA (PORCINE) 40 MG/0.4 ML DISP.SYRIN SQ SCH (10:00)
[2023-10-08] MEDS ORDERED: oxyCODONE HCL 5 MG TABLET PO PRN (12:31)
[2023-10-08] MEDS ORDERED: ACETAMINOPHEN 1000 MG/100 ML BAG IVPB PRN (12:43)
[2023-10-08] MEDS ORDERED: ACETAMINOPHEN INJECTION 100 ML IVPB ONE (12:51)
[2023-10-08] MEDS ORDERED: CARBIDOPA/LEVODOPA 25/250 TABLET (FP) ONE (13:12)
[2023-10-08] MEDS ORDERED: oxyCODONE HCL 5 MG TABLET ONE (13:45)
[2023-10-08] MEDS ORDERED: ROSUVASTATIN CA 10 MG TABLET PO SCH (22:00)
[2023-10-08 23:37] VITALS: BMI 27.8
[2023-10-09 03:42] VITALS: RESP 20
[2023-10-09 06:27] VITALS: TEMP 98.9
[2023-10-09] MEDS: GABAPENTIN 100 MG CAPSULE PO SCH (06:33)
[2023-10-09] MEDS: INSULIN SLIDING SCALE (NOVOLOG) 1 VIAL SQ SCH ×2 (06:33→11:50)
[2023-10-09 08:05] LABS: HEMATOCRIT 32.1 % (32.4-45.2); HEMOGLOBIN 10.3 GM/dL (10.7-15.3); MCH 24.6 pg (25.7-33.7); MEAN CELL VOLUME 76.9 fl (80-96); MEAN PLT VOLUME 6.7 fl (7.5-11.1); PLATELET COUNT 424 10^3/uL (134-434); RBC 4.18 M/mm3 (3.60-5.2); RDW 16.6 % (11.6-15.6); WHITE BLOOD COUNT 4.7 K/mm3 (4.0-10.0)
[2023-10-09 08:10] LABS: INR 1.82 (0.83-1.09)
[2023-10-09 08:13] LABS: ACTIVATED PTT 30.4 SECONDS (25.2-36.5)
[2023-10-09 08:23] LABS: POTASSIUM 4.5 mmol/L (3.5-5.1)
[2023-10-09 08:27] LABS: BLOOD UREA NITROGEN 10.6 mg/dL (7-18); CALCIUM 8.9 mg/dL (8.5-10.1)
[2023-10-09 08:31] LABS: CREATININE 0.8 mg/dL (0.55-1.3)
[2023-10-09] MEDS: APIXABAN 5 MG TABLET PO SCH (09:04)
[2023-10-09] MEDS: amLODIPine BESYLATE 10 MG TABLET (FP) PO SCH (09:04)
[2023-10-09] MEDS: metoPROLOL SUCCINATE 25 MG TAB.SR.24H (FP) PO SCH (09:04)
[2023-10-09] MEDS: FAMOTIDINE 20 MG TABLET PO SCH (09:04)
[2023-10-09 09:07] VITALS: BP 149/73; PULSE 90
== END 2023-10-09 13:24 | disposition home or self-care (01) ==
LOC: JER 16:20 → JERBED 20:43 → J4W 10-08 20:52
PROVIDERS: ADMIT Internal Medicine; ATTEND Internal Medicine
PROC: 3E033NZ Introduction of Analgesics, Hypnotics, Sedatives into Peripheral Vein, Percutaneous Approach (ICD-10-PCS; principal; 2023-10-07)
DX: E11.9 Type 2 diabetes mellitus without complications (principal); J44.9 Chronic obstructive pulmonary disease, unspecified; Z29.89 Encounter for other specified prophylactic measures; S09.90XA Unspecified injury of head, initial encounter; I10 Essential (primary) hypertension; I50.30 Unspecified diastolic (congestive) heart failure; I65.29 Occlusion and stenosis of unspecified carotid artery; I69.351 Hemiplegia and hemiparesis following cerebral infarction affecting right dominant side; D50.9 Iron deficiency anemia, unspecified; W18.39XA Other fall on same level, initial encounter; Y93.89 Activity, other specified; Y92.488 Other paved roadways as the place of occurrence of the external cause; M25.562 Pain in left knee; M25.561 Pain in right knee; Z99.89 Dependence on other enabling machines and devices
CPT/HCPCS: 0241U-QW; 36415; 70450-TC; 71045-TC-FY; 72125-TC; 73562-TC-LT-FY; 73562-TC-RT-FY; 80048; 80053; 81003; 82962; 83735; 84484; 85025; 85027; 85610; 85730; 86850; 86900; 86901; 87086; 93005; 93010; 96374; 97116-GP; 97162-GP; 99285-25; G0378

== ENCOUNTER 2024-11-01 13:02 | Inpatient (IN) | payer OTHER, BC ==
[2024-11-01] MEDS ORDERED: ACETAMINOPHEN INJECTION 100 ML ONE (14:41)
[2024-11-01] MEDS: ACETAMINOPHEN 1000 MG/100 ML BAG IVPB ONE (14:50)
[2024-11-01 14:55] LABS: BASO % 1.9 % (0-2.0); EOS % 2.2 % (0-4.5); HEMATOCRIT 34.1 % (32.4-45.2); HEMOGLOBIN 10.7 GM/dL (10.7-15.3); LYMPH % 32.7 % (8-40); MCH 25.9 pg (25.7-33.7); MCHC 31.4 g/dl (32.0-36.0); MEAN CELL VOLUME 82.5 fl (80-96); MEAN PLT VOLUME 7.6 fl (7.5-11.1); MONO % 9.7 % (3.8-10.2); NEUT % 53.5 % (42.8-82.8); PLATELET COUNT 389 10^3/uL (134-434); RBC 4.13 M/mm3 (3.60-5.2); RDW 15.2 % (11.6-15.6); WHITE BLOOD COUNT 7.5 K/mm3 (4.0-10.0)
[2024-11-01 15:02] LABS: INR 1.59 (0.83-1.09); PROTHROMBIN TIME (PATIENT) 17.7 SEC (9.7-13.0)
[2024-11-01] MEDS: LACTATED RINGERS SOLUTION 1000 ML INFUS.BAG IV ONE (15:04)
[2024-11-01 15:15] LABS: POTASSIUM 4.1 mmol/L (3.5-5.1)
[2024-11-01 15:17] LABS: CALCIUM 9.4 mg/dL (8.5-10.1)
[2024-11-01 15:18] LABS: ALBUMIN 3.4 g/dl (3.4-5.0); BLOOD UREA NITROGEN 17.4 mg/dL (7-18); MAGNESIUM 2.1 mg/dL (1.8-2.4)
[2024-11-01 15:21] LABS: CREATININE 1.3 mg/dL (0.55-1.3)
[2024-11-01 15:22] LABS: BILIRUBIN,TOTAL 0.6 mg/dL (0.2-1)
[2024-11-01 15:23] LABS: TOT PROT 7.4 g/dl (6.4-8.2)
[2024-11-01 18:09] LABS: EPI CELLS 17 /uL (0-25.1); HYALINE CASTS 1 /uL (0-3.1); PH,URINE 5.5 (5.0-8.0); URINE APPEARANCE CLEAR; URINE BACTERIA 835 /uL (0-1359); URINE BILIRUBIN NEGATIVE (NEGATIVE); URINE COLOR YELLOW; URINE GLUCOSE (UA) NEGATIVE (NEGATIVE); URINE KETONE NEGATIVE (NEGATIVE); URINE LEUK ESTERASE 2+ (NEGATIVE); URINE NITRITE NEGATIVE (NEGATIVE); URINE PROTEIN 1+ (NEGATIVE); URINE UROBILINOGEN 0.2 mg/dL (0.2-1.0); URINE WBC 152 /uL (0-25.8)
[2024-11-01 18:24] LABS: URINE RBC 28.6 /uL (0-23.9)
[2024-11-01] MEDS ORDERED: CEFTRIAXONE 1 G/50 ML PREMIX 50 ML IVPB ONE (18:44)
[2024-11-01] MEDS: CEFTRIAXONE 1 GM in DEXTROSE 5%-WATER - 100 ML IVPB ONE (18:53)
[2024-11-01] MEDS: ACETAMINOPHEN 1000 MG/100 ML BAG IVPB PRN (23:26)
[2024-11-02] MEDS: VANCOMYCIN/WATER FOR INJ (PEG) 1,000 MG/200 ML BAG IVPB SCH (02:25)
[2024-11-02] MEDS: MELATONIN 5 MG TABLETS PO ONE (02:28)
[2024-11-02] MEDS: INSULIN ASPART SLIDING SCALE (NOVOLOG) 1 VIAL SQ SCH (06:44)
[2024-11-02 08:58] LABS: BASO % 1.1 % (0-2.0); EOS % 2.6 % (0-4.5); HEMATOCRIT 32.6 % (32.4-45.2); HEMOGLOBIN 10.3 GM/dL (10.7-15.3); LYMPH % 26.5 % (8-40); MCH 26.1 pg (25.7-33.7); MCHC 31.6 g/dl (32.0-36.0); MEAN CELL VOLUME 82.6 fl (80-96); MEAN PLT VOLUME 7.7 fl (7.5-11.1); MONO % 9.4 % (3.8-10.2); NEUT % 60.4 % (42.8-82.8); PLATELET COUNT 340 10^3/uL (134-434); RBC 3.95 M/mm3 (3.60-5.2); RDW 14.9 % (11.6-15.6); WHITE BLOOD COUNT 6.6 K/mm3 (4.0-10.0)
[2024-11-02 09:20] LABS: POTASSIUM 3.7 mmol/L (3.5-5.1)
[2024-11-02 09:21] LABS: ALBUMIN 3.2 g/dl (3.4-5.0); CALCIUM 9.2 mg/dL (8.5-10.1)
[2024-11-02 09:22] LABS: BLOOD UREA NITROGEN 14.4 mg/dL (7-18)
[2024-11-02 09:25] LABS: CREATININE 1.1 mg/dL (0.55-1.3); PHOSPHOROUS 3.4 mg/dL (2.5-4.9)
[2024-11-02 09:26] LABS: BILIRUBIN,TOTAL 0.4 mg/dL (0.2-1); TOT PROT 6.7 g/dl (6.4-8.2)
[2024-11-02] MEDS: metoPROLOL SUCCINATE 25 MG TAB.SR.24H (FP) PO SCH (09:57)
[2024-11-02] MEDS: APIXABAN 5 MG TABLET PO SCH (09:57)
[2024-11-02] MEDS: CEFTRIAXONE 1 G/50 ML PREMIX 50 ML IVPB SCH (09:57)
[2024-11-02] MEDS: FAMOTIDINE 20 MG TABLET PO SCH (09:57)
[2024-11-02] MEDS: amLODIPine BESYLATE 10 MG TABLET (FP) PO SCH (09:57)
[2024-11-02] MEDS ORDERED: ENOXAPARIN NA (PORCINE) 40 MG/0.4 ML DISP.SYRIN SQ SCH (10:00)
[2024-11-02 15:18] VITALS: BMI 26.4
[2024-11-02] MEDS: VANCOMYCIN 1,000 MG in DEXTROSE 5%-WATER - 250 ML IVPB SCH (17:11)
[2024-11-02] MEDS: ROSUVASTATIN CA 10 MG TABLET PO SCH (21:36)
[2024-11-03 09:24] LABS: BASO % 0.6 % (0-2.0); EOS % 2.7 % (0-4.5); HEMATOCRIT 33.3 % (32.4-45.2); HEMOGLOBIN 10.8 GM/dL (10.7-15.3); LYMPH % 25.1 % (8-40); MCH 26.2 pg (25.7-33.7); MCHC 32.3 g/dl (32.0-36.0); MEAN CELL VOLUME 81.1 fl (80-96); MEAN PLT VOLUME 8.1 fl (7.5-11.1); NEUT % 62.6 % (42.8-82.8); PLATELET COUNT 336 10^3/uL (134-434); RDW 15.2 % (11.6-15.6); WHITE BLOOD COUNT 6.6 K/mm3 (4.0-10.0)
[2024-11-03 09:43] LABS: POTASSIUM 3.6 mmol/L (3.5-5.1)
[2024-11-03 09:51] LABS: ALBUMIN 3.3 g/dl (3.4-5.0)
[2024-11-03 09:52] LABS: BLOOD UREA NITROGEN 15.5 mg/dL (7-18); TOT PROT 7.1 g/dl (6.4-8.2)
[2024-11-03 09:53] LABS: BILIRUBIN,TOTAL 0.5 mg/dL (0.2-1)
[2024-11-03 09:54] LABS: CALCIUM 9.4 mg/dL (8.5-10.1)
[2024-11-03 09:55] LABS: CREATININE 0.9 mg/dL (0.55-1.3); PHOSPHOROUS 3.4 mg/dL (2.5-4.9)
[2024-11-03] MEDS: ACETAMINOPHEN 1000 MG/100 ML BAG IVPB ONE (15:52)
[2024-11-04 12:07] VITALS: RESP 16
[2024-11-04 15:03] VITALS: BP 116/68; PULSE 66; TEMP 97.7
== END 2024-11-04 20:01 | DRG 689 ==
LOC: JER 13:02 → OBSVTOIN 20:18 → JERBED 20:18 → J4W 23:13
PROVIDERS: ADMIT Internal Medicine; ATTEND Internal Medicine
DX: N39.0 Urinary tract infection, site not specified (principal); G93.41 Metabolic encephalopathy; I69.351 Hemiplegia and hemiparesis following cerebral infarction affecting right dominant side; I50.32 Chronic diastolic (congestive) heart failure; J44.9 Chronic obstructive pulmonary disease, unspecified; E11.9 Type 2 diabetes mellitus without complications; E78.5 Hyperlipidemia, unspecified; H54.40 Blindness, one eye, unspecified eye; I11.0 Hypertensive heart disease with heart failure; D50.9 Iron deficiency anemia, unspecified; Z86.718 Personal history of other venous thrombosis and embolism
CPT/HCPCS: 0241U-QW; 36415; 70450-TC; 71045-TC-FY; 80053; 81003; 82550; 82962; 83735; 84100; 84484; 85025; 85610; 85730; 87086; 93005; 93010; 93970-TC; 97116-GP; 97162-GP; 99285-25; J0131